=== PATIENT | male | born 1940 | race Caucasian/White ===

== ENCOUNTER 2016-10-05 12:24 | Day surgery (SDC) | payer MEDICARE ==
[2016-10-05] MEDS ORDERED: LACTATED RINGERS 1,000 ML IV ONE (12:46)
[2016-10-05] MEDS ORDERED: EPINEPHrine 1 MG/ML AMP IVP ONE (13:00)
[2016-10-05] MEDS ORDERED: PROPOFOL 200 MG/20 ML VIAL IVP ONE (13:00)
[2016-10-05] MEDS ORDERED: LIDOCAINE-MPF 2% 5 ML VIAL IM ONE (13:00)
[2016-10-05] MEDS ORDERED: MIDAZOLAM 2 MG/2 ML VIAL IVP ONE (13:00)
== END 2016-10-05 12:25 | disposition home or self-care (01) ==
PROC: 0DBH8ZX Excision of Cecum, Via Natural or Artificial Opening Endoscopic, Diagnostic (ICD-10-PCS; 2016-10-05)
PROC: 0DB38ZX Excision of Lower Esophagus, Via Natural or Artificial Opening Endoscopic, Diagnostic (ICD-10-PCS; principal; 2016-10-05 11:15)
PROC: 0DB68ZX Excision of Stomach, Via Natural or Artificial Opening Endoscopic, Diagnostic (ICD-10-PCS; 2016-10-05 11:15)
DX: Z12.11 Encounter for screening for malignant neoplasm of colon (principal); K22.70 Barrett's esophagus without dysplasia; D12.0 Benign neoplasm of cecum; K31.1 Adult hypertrophic pyloric stenosis; Q40.2 Other specified congenital malformations of stomach; K29.50 Unspecified chronic gastritis without bleeding; K62.89 Other specified diseases of anus and rectum; Q87.0 Congenital malformation syndromes predominantly affecting facial appearance; K44.9 Diaphragmatic hernia without obstruction or gangrene; K21.9 Gastro-esophageal reflux disease without esophagitis; Z86.010 Personal history of colon polyps; Z79.82 Long term (current) use of aspirin; J30.2 Other seasonal allergic rhinitis; E29.1 Testicular hypofunction; I25.2 Old myocardial infarction; I25.10 Atherosclerotic heart disease of native coronary artery without angina pectoris; E78.5 Hyperlipidemia, unspecified; M81.0 Age-related osteoporosis without current pathological fracture; Z82.49 Family history of ischemic heart disease and other diseases of the circulatory system; F17.210 Nicotine dependence, cigarettes, uncomplicated; K64.8 Other hemorrhoids; H54.8 Legal blindness, as defined in USA
CPT/HCPCS: 43239; 45380; 87081; J7120

== ENCOUNTER 2016-11-11 09:27 | Outpatient (CLI) | payer MEDICARE ==
[2016-11-11] MEDS ORDERED: BARIUM SULFATE 176 GM BOTTLE PO ONE (10:25)
[2016-11-11] MEDS ORDERED: BARIUM SULFATE 135 ML BOTTLE PO ONE (10:25)
== END 2016-11-11 09:28 | disposition home or self-care (01) ==
DX: K22.70 Barrett's esophagus without dysplasia (principal); K21.9 Gastro-esophageal reflux disease without esophagitis
CPT/HCPCS: 74246; A9270

== ENCOUNTER 2017-04-18 09:14 | Day surgery (SDC) | payer MEDICARE ==
[2017-04-18] MEDS ORDERED: LACTATED RINGERS 1,000 ML IV ONE ×2 (09:47→12:07)
[2017-04-18] MEDS ORDERED: PROPOFOL 200 MG/20 ML VIAL IVP ONE (12:00)
[2017-04-18] MEDS ORDERED: MIDAZOLAM 2 MG/2 ML VIAL IVP ONE (12:00)
[2017-04-18] MEDS ORDERED: LIDOCAINE-MPF 2% 5 ML VIAL IM ONE (12:00)
[2017-04-18 13:31] VITALS: BP 128/62
== END 2017-04-18 09:15 | disposition home or self-care (01) ==
LOC: SDS 09:14
PROVIDERS: ATTEND Surgery
PROC: 0DBH8ZX Excision of Cecum, Via Natural or Artificial Opening Endoscopic, Diagnostic (ICD-10-PCS; principal; 2017-04-18 10:30)
DX: D12.0 Benign neoplasm of cecum (principal); K57.30 Diverticulosis of large intestine without perforation or abscess without bleeding; K64.8 Other hemorrhoids; K21.9 Gastro-esophageal reflux disease without esophagitis; E78.5 Hyperlipidemia, unspecified; I25.10 Atherosclerotic heart disease of native coronary artery without angina pectoris; F17.210 Nicotine dependence, cigarettes, uncomplicated; K22.70 Barrett's esophagus without dysplasia; E03.9 Hypothyroidism, unspecified; Q87.0 Congenital malformation syndromes predominantly affecting facial appearance; Z79.82 Long term (current) use of aspirin
CPT/HCPCS: 45385; J7120; 88305

== ENCOUNTER 2017-09-01 11:28 | Outpatient (CLI) | payer MEDICARE | END 2017-09-01 11:29 | disposition home or self-care (01) | LOC: LAB.F 11:28 | PROVIDERS: ATTEND Physician Assistant Medical | DX: E29.1 Testicular hypofunction (principal) | CPT/HCPCS: 36415; 84403 ==

== ENCOUNTER 2017-09-12 12:58 | Outpatient (CLI) | payer MEDICARE | END 2017-09-12 12:59 | disposition home or self-care (01) | LOC: DI 12:58 | PROVIDERS: ATTEND Physician Assistant Medical | DX: R94.31 Abnormal electrocardiogram [ECG] [EKG] (principal); I25.10 Atherosclerotic heart disease of native coronary artery without angina pectoris | CPT/HCPCS: 93306 ==

== ENCOUNTER 2018-06-22 13:38 | Outpatient (CLI) | payer MEDICARE ==
[2018-06-22 17:36] LABS: EOSINOPHILS # (AUTO) 0.1 10^3/uL (0.0-0.7); EOSINOPHILS % (AUTO) 2.1 %; HGB - HEMOGLOBIN 14.6 g/dL (14.0-18.0); LYMPHOCYTES # (AUTO) 1.3 10^3/uL (1.5-3.5); LYMPHOCYTES % (AUTO) 26.7 %; MEAN CORPUSCULAR HEMOGLOBIN 33.4 pg (27.0-31.0); MEAN CORPUSCULAR HGB CONC 34.9 g/dL (32.0-36.0); MEAN CORPUSCULAR VOLUME 95.7 fL (80.0-94.0); MEAN PLATELET VOLUME 8.5 fL (7.4-11.4); MONOCYTES # (AUTO) 0.7 10^3/uL (0.0-1.0); MONOCYTES % (AUTO) 13.1 %; NEUTROPHILS # (AUTO) 2.8 10^3/uL (1.5-6.6); NEUTROPHILS % (AUTO) 57.1 %; PLT - PLATELET COUNT 153 10^3/uL (130-450); RED BLOOD COUNT 4.36 10^6/uL (4.70-6.10); RED CELL DISTRIBUTION WIDTH 13.2 % (12.0-15.0)
[2018-06-22 18:14] LABS: ALBUMIN 3.6 g/dL (3.2-5.5); ALBUMIN/GLOBULIN RATIO 1.3 (1.0-2.2); BILIRUBIN,TOTAL 0.5 mg/dL (0.2-1.0); CALCIUM 8.7 mg/dL (8.5-10.3); TOTAL PROTEIN 6.4 g/dL (6.7-8.2)
== END 2018-06-22 13:39 | disposition home or self-care (01) ==
LOC: LAB.F 13:38
PROVIDERS: ATTEND Physician Assistant Medical
DX: E03.9 Hypothyroidism, unspecified (principal); N18.9 Chronic kidney disease, unspecified
CPT/HCPCS: 36415; 80053; 84443; 85025

== ENCOUNTER 2018-11-10 22:43 | Outpatient (CLI) | payer MEDICARE | END 2018-11-10 22:44 | disposition critical access hospital (66) | LOC: EMS 22:43 | PROVIDERS: ATTEND Surgery | DX: M25.552 Pain in left hip (principal); S09.90XA Unspecified injury of head, initial encounter; W10.8XXA Fall (on) (from) other stairs and steps, initial encounter; Y92.001 Dining room of unspecified non-institutional (private) residence as the place of occurrence of the external cause | CPT/HCPCS: A0425; A0429 ==

== ENCOUNTER 2018-11-10 23:06 | Inpatient (IN) | payer MEDICARE ==
[2018-11-10 23:33] LABS: BILIRUBIN,URINE NEGATIVE (NEGATIVE); GLUCOSE, URINE (UA) NEGATIVE (NEGATIVE); KETONES,URINE (UA) NEGATIVE (NEGATIVE); LEUKOCYTE ESTERASE, URINE NEGATIVE (NEGATIVE); NITRITE,URINE NEGATIVE (NEGATIVE); OCCULT BLOOD,URINE NEGATIVE (NEGATIVE); PROTEIN,URINE NEGATIVE (NEGATIVE); UROBILINOGEN,URINE 0.2 (NORMAL) E.U./dL (NORMAL)
[2018-11-10 23:35] LABS: CLARITY,URINE CLEAR (CLEAR)
--- NOTE | 2018-11-11 00:01 | XRAY Report ---
Reason: GLF, shortening Procedure Date: 11/10/2018 Accession Number: [id number] / [id number] Procedure: XR - Hip w/Pelvis 2-3V LT CPT Code: FULL RESULT: EXAM: LEFT HIP RADIOGRAPHY EXAM DATE: 11/10/2018 11:49 PM. CLINICAL HISTORY: GLF, shortening. COMPARISON: None. TECHNIQUE: 2 views. FINDINGS: Bones: Mild sclerosis in the basicervical and intertrochanteric region of the left femur suspicious for an impacted fracture. Joints: Mild osteoarthritis of the hips. Soft Tissues: Soft tissue swelling. IMPRESSION: Sclerosis in the basicervical and intertrochanteric left femur, suspicious for an impacted fracture. Consider further evaluation with CT or MRI. RADIA
--- NOTE | 2018-11-11 00:27 | ED Physician Documentation ---
PD HPI LOWER EXT INJURY - Stated complaint Stated Complaint: GLF/HIP PX - Chief complaint Chief Complaint: Ext Problem - History obtained from History obtained from: Patient, Family, EMS - History of Present Illness PD HPI LOW EXT INJURY LOCATION: Left, Hip Type of injury: Fall Where injury occurred: Home Timing - onset: Enter time (21:00) Timing - details: Abrupt onset Improved by: Rest Worsened by: Moving Associated symptoms: No: Weakness, Numbness, Tingling, Swelling, Discolored Contributing factors: No: Anticoagulated Recently seen: Not recently seen Review of Systems Constitutional: reports: Reviewed and negative Eyes: reports: Reviewed and negative Ears: reports: Reviewed and negative Nose: reports: Reviewed and negative Throat: reports: Reviewed and negative Cardiac: reports: Reviewed and negative Respiratory: reports: Reviewed and negative GI: reports: Reviewed and negative : reports: Reviewed and negative Skin: reports: Reviewed and negative Musculoskeletal: reports: Joint pain, Pain with weight bearing Neurologic: reports: Reviewed and negative PD PAST MEDICAL HISTORY - Past Medical History Past Medical History: Yes Cardiovascular: High cholesterol, Coronary artery disease, [place], Arrhythmia Respiratory: None Endocrine/Autoimmune: None GI: GERD, Ulcers : None HEENT: Chronic vision loss, Chronic sinusitis, Chronic hearing loss Psych: Depression Musculoskeletal: Osteoporosis Derm: None - Past Surgical History Past Surgical History: Yes General: Gastric surgery, Colonoscopy Ortho: Other - Present Medications Home Medications: Ambulatory Orders Medication Instructions Recorded Confirmed Omeprazole [PriLOSEC] 20 mg PO QDAC 04/08/14 11/11/18 raNITIdine [Zantac] 150 mg PO BID 04/08/14 11/11/18 - Allergies Allergies/Adverse Reactions: Allergies Allergy/AdvReac Type Severity Reaction Status Date / Time No Known Drug Allergies Allergy Verified 10/05/16 12:30 - Social History Does the pt smoke?: Yes Smoking Status: Current every day smoker Does the pt drink ETOH?: No Does the pt have substance abuse?: No - Immunizations Immunizations are current?: Yes - POLST Patient has POLST: No PD ED PE NORMAL - Vitals Vital signs reviewed: Yes - General General: Alert and oriented X 3, No acute distress (NAD at rest but painful distress with movement involving left hip), Well developed/nourished - HEENT HEENT: Moist mucous membranes - Neck Neck: Supple, no meningeal sign, No bony TTP - Cardiac Cardiac: RRR, No murmur - Respiratory Respiratory: No respiratory distress, Clear bilaterally - Abdomen Abdomen: Soft, Non tender - Derm Derm: Normal color, Warm and dry - Extremities Extremities: No edema - Neuro Neuro: Alert and oriented X 3, No motor deficit, No sensory deficit PD ED PE EXPANDED - Extremities Extremities: Limited ROM, Left hip Results - Vitals Vitals: Vital Signs - 24 hr 11/11/18 01:27 Heart Rate 82 Respiratory 18 Rate Blood Pressure 130/101 H O2 Saturation 96 Oxygen O2 Source Room air - Labs Labs: Laboratory Tests 11/10/18 11/11/18 11/11/18 23:30 00:48 01:14 WBC 11.6 H RBC 4.42 L Hgb 14.8 Hct 42.8 MCV 96.8 H MCH 33.4 H MCHC 34.5 RDW 13.7 Plt Count 177 MPV 8.0 Neut # (Auto) 9.5 H Lymph # (Auto) 1.1 L [place] # (Auto) 0.9 Eos # (Auto) 0.1 Baso # (Auto) 0.0 Absolute Nucleated RBC 0.00 Nucleated RBC % 0.0 Sodium 134 L Potassium 3.8 Chloride 101 Carbon Dioxide 23 Anion Gap 10.0 BUN 18 Creatinine 1.0 Estimated GFR (MDRD) 72 L Glucose 106 H Calcium 8.6 Urine Color YELLOW Urine Clarity CLEAR Urine pH 7.0 Ur Specific [place] 1.020 Urine Protein NEGATIVE Urine Glucose (UA) NEGATIVE Urine Ketones NEGATIVE Urine Occult Blood NEGATIVE Urine Nitrite NEGATIVE Urine Bilirubin NEGATIVE Urine Urobilinogen 0.2 (NORMAL) Ur Leukocyte Esterase NEGATIVE Ur Microscopic Review NOT INDICATED Urine Culture Comments NOT INDICATED - Rads (name of study) left hip xrays Radiology: Prelim report reviewed, See rad report left hip CT Radiology: Prelim report reviewed, See rad report PD MEDICAL DECISION MAKING - ED course Complexity details: reviewed results, re-evaluated patient, considered differential, d/w patient, d/w family ED course: D/W Dr. Rojas, recommends admission to hospitalist service. D/W Dr. Salcedo, accepts admission to hospitalist service Departure - Departure Disposition: 66 [facility] DC/Xfer Clinical Impression: Hip fracture Qualifiers: Encounter type: initial encounter Fracture type: closed Laterality: left Qualified Code(s): S72.002A - Fracture of unspecified part of neck of left femur, initial encounter for closed fracture Condition: Good Discharge Date/Time: 11/11/18 04:05
[2018-11-11] MEDS ORDERED: MORPHINE 2 MG/ML CARPUJECT IVP STA ×3 (00:32→03:28)
[2018-11-11 00:55] LABS: BASOPHILS % (AUTO) 0.4 %; EOSINOPHILS # (AUTO) 0.1 10^3/uL (0.0-0.7); EOSINOPHILS % (AUTO) 0.6 %; HGB - HEMOGLOBIN 14.8 g/dL (14.0-18.0); LYMPHOCYTES # (AUTO) 1.1 10^3/uL (1.5-3.5); LYMPHOCYTES % (AUTO) 9.3 %; MEAN CORPUSCULAR HEMOGLOBIN 33.4 pg (27.0-31.0); MEAN CORPUSCULAR HGB CONC 34.5 g/dL (32.0-36.0); MEAN CORPUSCULAR VOLUME 96.8 fL (80.0-94.0); MONOCYTES # (AUTO) 0.9 10^3/uL (0.0-1.0); MONOCYTES % (AUTO) 7.8 %; NEUTROPHILS # (AUTO) 9.5 10^3/uL (1.5-6.6); NEUTROPHILS % (AUTO) 81.9 %; PLT - PLATELET COUNT 177 10^3/uL (130-450); RED BLOOD COUNT 4.42 10^6/uL (4.70-6.10); RED CELL DISTRIBUTION WIDTH 13.7 % (12.0-15.0); WHITE BLOOD COUNT 11.6 x10^3/uL (4.8-10.8)
--- NOTE | 2018-11-11 01:25 | CT Report ---
Reason: left hip pain Procedure Date: 11/11/2018 Accession Number: [id number] / [id number] Procedure: CT - Lower Extremity Left W/O CPT Code: FULL RESULT: EXAM: LEFT KNEE CT WITHOUT CONTRAST EXAM DATE: 11/11/2018 01:07 AM. CLINICAL HISTORY: Left hip pain. COMPARISON: HIP W/PELVIS 2-3V LT 11/10/2018 11:25 PM. TECHNIQUE: Thin-section axial images were acquired of the knee without contrast. Post-processing: Coronal and sagittal reformats. Other: None. In accordance with CT protocol optimization, one or more of the following dose reduction techniques were utilized for this exam: automated exposure control, adjustment of mA and/or KV based on patient size, or use of iterative reconstructive technique. FINDINGS: Bones: There is an intertrochanteric fracture with impaction of the fracture fragments and subtle fracture through the lateral base of the femoral neck. On the axial images there is angulation of the fracture fragments. Musculature: Normal. No fatty atrophy. Other: No Bakers cyst. No soft tissue swelling. IMPRESSION: 1. Intertrochanteric impaction fracture of the left hip. RADIA
[2018-11-11 01:31] LABS: CALCIUM 8.6 mg/dL (8.5-10.3)
[2018-11-11] MEDS ORDERED: SODIUM CHLORIDE 0.9% 1,000 ML IV STA (02:16)
[2018-11-11] MEDS ORDERED: PANTOPRAZOLE 40 MG VIAL IVP STA (02:18)
[2018-11-11] MEDS ORDERED: SODIUM CHLORIDE FLUSH 0.9% 10 ML SYRINGE IVP PRN ×2 (03:29→12:31)
[2018-11-11] MEDS ORDERED: ACETAMINOPHEN 325 MG TABLET PO PRN (03:29)
[2018-11-11] MEDS ORDERED: SODIUM CHLORIDE 0.9% 1,000 ML IV SCH (04:00)
--- NOTE | 2018-11-11 04:04 | XRAY Report ---
Reason: pre-op eval Procedure Date: 11/11/2018 Accession Number: [id number] / [id number] Procedure: XR - Chest 1 View X-Ray CPT Code: 51226 FULL RESULT: EXAM: CHEST RADIOGRAPHY EXAM DATE: 11/11/2018 03:39 AM. CLINICAL HISTORY: Pre-op eval. COMPARISON: 02/28/2009 1:25 PM. TECHNIQUE: 1 view. FINDINGS: Lungs/Pleura: No focal opacities evident. No pleural effusion. No pneumothorax. Mediastinum: Within exam limitations, the cardiomediastinal contour is normal. Other: None. IMPRESSION: No evidence of acute cardiopulmonary disease. RADIA
--- NOTE | 2018-11-11 04:10 | HISTORY & PHYSICAL EXAMINATION ---
Chief Complaint - Chief Complaint Chief Complaint: left hip pain History of Present Illness - Admitted From Admitted From:: [facility] ED - History Obtained From Records Reviewed: yes History obtained from: patient - History of Present Illness HPI Comment/Other: Patient is a 78 y/o male who presented to the ED after a mechanical fall. He was distracted while taking a step and tripped/ slipped. He bumped his head against the wall. He did not experience any dizziness, vision change or black out. He was unable to bear weight on the left side when he attempted to stand. He denies chest pain GARRETT, abd pain, nausea, vomiting, fever or chills. He had an xray of the hip and a CT of the hip which confirmed the fracture. 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 He uses a white cane to walk when he is out of the house. He is being admitted for further management. History - Past Medical History Cardiovascular: reports: High cholesterol, Coronary artery disease, [place], Arrhythmia Respiratory: reports: None Endocrine/Autoimmune: reports: None GI: reports: GERD, Ulcers : reports: None HEENT: reports: Chronic vision loss, Chronic sinusitis, Chronic hearing loss Psych: reports: Depression Musculoskeletal: reports: Osteoporosis Derm: reports: None MRSA Hx?: No Other Past Medical History: Apert Syndrome. throat Ca, in remission. ?'heart stopped' during gastric surgery - Past Surgical History General: reports: Gastric surgery, Colonoscopy Ortho: reports: Other - Family & Social History Family History: Mother: CAD, Father: CAD Living arrangement: At home Living Situation: With family - Substance History Use: Uses substance without health or social issues: Tobacco Tobacco Details: Cigarettes - POLST Patient has POLST: Yes POLST Status: Full Code Meds/Allgy - Home Medications Home Medications: Ambulatory Orders Medication Instructions Recorded Confirmed Omeprazole [PriLOSEC] 20 mg PO DAILY 04/08/14 04/18/17 Testosterone [Testopel] 74 mg IN UD 04/08/14 04/18/17 raNITIdine [Zantac] 150 mg PO DAILY 04/08/14 04/18/17 Calcium Carbonate [Tums] 1 tab PO DAILY 10/05/16 04/18/17 Ibuprofen [Advil] 200 mg PO Q6HR PRN 10/05/16 04/18/17 - Allergies Allergies/Adverse Reactions: Allergies Allergy/AdvReac Type Severity Reaction Status Date / Time No Known Drug Allergies Allergy Verified 10/05/16 12:30 Review of Systems - Constitutional Constitutional: denies: Fatigue, Fever, Chills, Weakness, Poor appetite - Eyes Eyes: denies: Pain, Irritation, Blurred vision, Vision loss, Dipolpia - Ears, Nose & Throat Ears, Nose & Throat: denies: Vertigo, Nasal pain, Sore throat - Cardiovascular Cariovascular: denies: Irregular heart rate, Palpitations, Chest pain, Edema, Lightheadedness, Syncope, Exertional dyspnea, Decr. exercise tolerance, Orthopnea - Respiratory Respiratory: denies: Cough, Sputum production, Wheezing, Hemoptysis, Orthopnea, SOB at rest, SOB with exertion - Gastrointestinal Gastrointestinal: denies: Abdominal pain, Abdominal distention, Constipation, Change in bowel habits, Rectal bleeding, Black stools, Nausea, Vomiting - Genitourinary Genitourinary: denies: Dysuria, Frequency, Urgency, Hematuria - Musculoskeletal Musculoskeletal: denies: Back pain, Muscle aches, Stiffness, Gout, Joint pain - Integumentary Integumentary: denies: Rash, Pruritis, Lesions, Dryness - Neurological Neurological: denies: General weakness, Focal weakness, Headache, Dizziness - Psychiatric Psychiatric: denies: Depression, Anxiety, Hallucinations - Endocrine Endocrine: denies: Polyuria, Polydypsia, Polyphagia, Intolerance to cold - Hematologic/Lymphatic Hematologic/Lymphatic: denies: Anemia, Bruising, Petechiae, Blood clots Prior Level of Functionality: Patient lives with his daughter. He is legally blind and uses a white cane to get around outside of the house. He can see shapes and shadows but cannot make out any further details He is able to fix a meal e.g sandwich for himself. He is hard of hearing Exam - Vital Signs Reviewed Vital Signs: Yes Vital Signs: Vital Signs x48h Temp Pulse Resp BP Pulse Ox 11/11/18 03:52 91 18 114/81 H 95 11/11/18 01:27 82 18 130/101 H 96 11/10/18 23:16 35.8 C L 82 18 158/95 H 97 11/10/18 23:13 35.8 C L 82 18 158/95 H 97 - Physical Exam General Appearance: positive: No acute distress, Alert, Moderate distress. negative: Lethargic Eyes Bilateral: positive: Normal inspection, PERRL ENT: positive: ENT inspection nml Neck: positive: No JVD, Trachea midline Respiratory: positive: Chest non-tender, No respiratory distress, Breath sounds nml. negative: Wheezes, Rales, Rhonchi Cardiovascular: positive: Regular rate & rhythm, No murmur Abdomen: positive: Non-tender, No organomegaly, Nml bowel sounds, No distention Back: positive: Nml inspection Extremities: positive: No pedal edema, Other (left hip pain) Neurologic/Psychiatric: positive: Oriented x3 Conclusion/Plan - Problem List (1) Closed intertrochanteric fracture of left femur Conclusion/Plan: Pt NPO. IV hydration Pain management with tylenol Dr Rojas (orthopedic) was contacted by the ED and plans to see the patient to day. 12 lead EKG and CXR pending According to the revised cardiac risk index, the patient has no risk factors. Which put his risk of a cardiac event during this noncardiac surgery at 0.5% However, in light of a previous cardiac event during a gastric surgery ("heart stopped") I will recommend further evaluation with a 2D echocardiogram Qualifiers: Encounter type: initial encounter (2) Osteoporosis Conclusion/Plan: On calcium supplement (3) Hypogonadism Conclusion/Plan: Patient uses testosterone cream (4) GERD (gastroesophageal reflux disease) Conclusion/Plan: Protonix ordered (5) Apert syndrome Conclusion/Plan: Chronic. Congenital (6) Tobacco abuse Conclusion/Plan: Nicotine patch - Lab Results Fish Bones: 11/11/18 00:48 11/11/18 01:14 Core Measures - DVT/VTE - Prophylaxis VTE/DVT Device ordered at admit?: Yes VTE/DVT Prophylaxis med ordered at admit?: No Not Ordered - Medical Reason: Contraindicated (surgery)
[2018-11-11] MEDS ORDERED: NICOTINE 14 MG PATCH TOP STA (05:16)
[2018-11-11] MEDS ORDERED: MORPHINE 2 MG/ML CARPUJECT IVP PRN (08:17)
--- NOTE | 2018-11-11 08:48 | PROVIDER PROGRESS NOTE ---
Assessment/Plan - Problem List (1) Closed intertrochanteric fracture of left femur Qualifiers: Encounter type: initial encounter Fracture alignment: displaced Qualified Code(s): S72.142A - Displaced intertrochanteric fracture of left femur, initial encounter for closed fracture Assessment/Plan: Pt requiring orthopedic surgery today. Post-op pain control, DVT prophylaxis and then Physical Therapy to start tomorrow. (2) Apert syndrome Assessment/Plan: Dysmorphic facies noted. Patient is also legally blind, but sees shapes. (3) Abnormal EKG Assessment/Plan: The record states he has a Hx of prior OH. 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 A bedside, pre-op Echo was done and shows a preserved LVEF. There are no recent SOB or chest pain complaints. His kashif-operative risk is 1, therefore risk rate for a major cardiac event, using the Revised Cardiac Risk Index, is 1-1.3% He is optimized from a cardiac standpoint for the OR today, and I communicated this to Dr Rojas, the Orthopedist. - Current Meds Current Meds: Current Medications Generic Name Dose Route Start Last Admin Trade Name Freq PRN Reason Stop Dose Admin Sodium Chloride 1,000 mls @ 100 mls/hr 11/11/18 04:00 11/11/18 04:22 Normal Saline 0.9% IV 100 mls/hr .Q10H JOSE MANUEL Administration - Lab Result Fish Bone Diagrams: 11/11/18 00:48 11/11/18 01:14 - EKG Results EKG Interpreted Independently: Yes EKG Comparison: No prior EKG EKG Findings: NSR, low voltage EKG, deep inferior QS waves, poor R ave progression. - Additional Planning My Orders: My Active Orders 11/11/18 08:17 Morphine Inj (Carpuject) [Morphine (Carpuject)] 2.5 mg IVP Q4H PRN Subjective - Subjective Patient Reports: Feeling Better, Resting Comfortably Nursing Reports: Other (Some pain at hhip.) Objective Vital Signs: Vital Signs - 24 hr 11/10/18 11/10/18 11/11/18 23:13 23:16 01:27 Temperature 35.8 C L 35.8 C L Heart Rate 82 82 82 Heart Rate [ Brachial] Respiratory 18 18 18 Rate Blood Pressure 158/95 H 158/95 H 130/101 H Blood Pressure [Right Brachial artery] O2 Saturation 97 97 96 11/11/18 11/11/18 11/11/18 03:52 04:23 08:00 Temperature 36.4 C L 36.7 C Heart Rate 91 Heart Rate [ 87 80 Brachial] Respiratory 18 17 18 Rate Blood Pressure 114/81 H Blood Pressure 116/79 127/66 [Right Brachial artery] O2 Saturation 95 94 96 Oxygen O2 Source Room air I&O (Last 24 Hrs): Intake and Output Totals x24h 11/09/18 11/10/18 11/11/18 23:59 23:59 23:59 Output Total 450 Balance -450 General: Alert HEENT: Other (Dysmorphic head and face) Neck: Supple Neuro: Other (Legally blind) Cardiovascular: Regular rate, No murmurs Respiratory: No respiratory distress Abdomen: Soft Extremities: No edema - Results Results: Laboratory Results WBC 11.6 x10^3/uL (4.8-10.8) H 11/11/18 00:48 RBC 4.42 10^6/uL (4.70-6.10) L 11/11/18 00:48 Hgb 14.8 g/dL (14.0-18.0) 11/11/18 00:48 Hct 42.8 % (42.0-52.0) 11/11/18 00:48 MCV 96.8 fL (80.0-94.0) H 11/11/18 00:48 MCH 33.4 pg (27.0-31.0) H 11/11/18 00:48 MCHC 34.5 g/dL (32.0-36.0) 11/11/18 00:48 RDW 13.7 % (12.0-15.0) 11/11/18 00:48 Plt Count 177 10^3/uL (130-450) 11/11/18 00:48 MPV 8.0 fL (7.4-11.4) 11/11/18 00:48 Neut # (Auto) 9.5 10^3/uL (1.5-6.6) H 11/11/18 00:48 Lymph # (Auto) 1.1 10^3/uL (1.5-3.5) L 11/11/18 00:48 [place] # (Auto) 0.9 10^3/uL (0.0-1.0) 11/11/18 00:48 Eos # (Auto) 0.1 10^3/uL (0.0-0.7) 11/11/18 00:48 Baso # (Auto) 0.0 10^3/uL (0.0-0.1) 11/11/18 00:48 Absolute Nucleated RBC 0.00 x10^3/uL 11/11/18 00:48 Nucleated RBC % 0.0 /100WBC 11/11/18 00:48 Sodium 134 mmol/L (135-145) L 11/11/18 01:14 Potassium 3.8 mmol/L (3.5-5.0) 11/11/18 01:14 Chloride 101 mmol/L (101-111) 11/11/18 01:14 Carbon Dioxide 23 mmol/L (21-32) 11/11/18 01:14 Anion Gap 10.0 (6-13) 11/11/18 01:14 BUN 18 mg/dL (6-20) 11/11/18 01:14 Creatinine 1.0 mg/dL (0.6-1.2) 11/11/18 01:14 Estimated GFR (MDRD) 72 (>89) L 11/11/18 01:14 Glucose 106 mg/dL (70-100) H 11/11/18 01:14 Calcium 8.6 mg/dL (8.5-10.3) 11/11/18 01:14 Urine Color YELLOW 11/10/18 23:30 Urine Clarity CLEAR (CLEAR) 11/10/18 23:30 Urine pH 7.0 PH (5.0-7.5) 11/10/18 23:30 Ur Specific [place] 1.020 (1.002-1.030) 11/10/18 23:30 Urine Protein NEGATIVE mg/dL (NEGATIVE) 11/10/18 23:30 Urine Glucose (UA) NEGATIVE mg/dL (NEGATIVE) 11/10/18 23:30 Urine Ketones NEGATIVE mg/dL (NEGATIVE) 11/10/18 23:30 Urine Occult Blood NEGATIVE (NEGATIVE) 11/10/18 23:30 Urine Nitrite NEGATIVE (NEGATIVE) 11/10/18 23:30 Urine Bilirubin NEGATIVE (NEGATIVE) 11/10/18 23:30 Urine Urobilinogen 0.2 (NORMAL) E.U./dL (NORMAL) 11/10/18 23:30 Ur Leukocyte Esterase NEGATIVE (NEGATIVE) 11/10/18 23:30 Ur Microscopic Review NOT INDICATED 11/10/18 23:30 Urine Culture Comments NOT INDICATED 11/10/18 23:30 - Procedures Procedures: Procedures ESOPHAGOGASTRODUODENOSCOPY [EGD] W/CLOSED BIOPSY (04/08/14) EXCISION OF CECUM, ENDO, DIAGN (04/18/17) EXCISION OF LOWER ESOPHAGUS, ENDO, DIAGN (10/05/16) EXCISION OF STOMACH, ENDO, DIAGN (10/05/16)
[2018-11-11] MEDS: SODIUM CHLORIDE FLUSH 0.9% 10 ML SYRINGE IVP SCH ×4 (08:52→20:38)
[2018-11-11] MEDS: PANTOPRAZOLE 40 MG VIAL IVP SCH (08:52)
[2018-11-11] MEDS: POLYETHYLENE GLYCOL 3350 17 GM PACKET PO SCH (08:53)
--- NOTE | 2018-11-11 09:22 | PROVIDER PROGRESS NOTE ---
Subjective - Prog Note Date Prog Note Date: 11/11/18 Prog Note Time: 09:20 - Subjective Pt reports feeling: No change (Patient TOM leal GLF at home last PM, landing onto his left side. Noted immediate hip pain. Unable to stand or weight bear on left. No prior hip fracture) Objective - Vital Signs/Intake & Output Vital Signs: Vital Signs x48h Temp Pulse Pulse Resp BP BP Pulse Ox 11/11/18 08:00 36.7 C 80 18 127/66 96 11/11/18 04:23 36.4 C L 87 17 116/79 94 11/11/18 03:52 91 18 114/81 H 95 11/11/18 01:27 82 18 130/101 H 96 Intake & Output: Intake & Output 11/08/18 11/09/18 11/10/18 11/11/18 23:59 23:59 23:59 23:59 Output Total 450 Balance -450 - Lab Results Fish Bones: 11/11/18 00:48 11/11/18 01:14 Other Labs: Lab Results x24hrs 11/11/18 11/11/18 11/10/18 Range/Units 01:14 00:48 23:30 WBC 11.6 H (4.8-10.8) x10^3/uL RBC 4.42 L (4.70-6.10) 10^6/uL Hgb 14.8 (14.0-18.0) g/dL Hct 42.8 (42.0-52.0) % MCV 96.8 H (80.0-94.0) fL MCH 33.4 H (27.0-31.0) pg MCHC 34.5 (32.0-36.0) g/dL RDW 13.7 (12.0-15.0) % Plt Count 177 (130-450) 10^3/uL MPV 8.0 (7.4-11.4) fL Neut # (Auto) 9.5 H (1.5-6.6) 10^3/uL Lymph # (Auto) 1.1 L (1.5-3.5) 10^3/uL [place] # (Auto) 0.9 (0.0-1.0) 10^3/uL Eos # (Auto) 0.1 (0.0-0.7) 10^3/uL Baso # (Auto) 0.0 (0.0-0.1) 10^3/uL Absolute Nucleated RBC 0.00 x10^3/uL Nucleated RBC % 0.0 /100WBC Sodium 134 L (135-145) mmol/L Potassium 3.8 (3.5-5.0) mmol/L Chloride 101 (101-111) mmol/L Carbon Dioxide 23 (21-32) mmol/L Anion Gap 10.0 (6-13) BUN 18 (6-20) mg/dL Creatinine 1.0 (0.6-1.2) mg/dL Estimated GFR (MDRD) 72 L (>89) Glucose 106 H (70-100) mg/dL Calcium 8.6 (8.5-10.3) mg/dL Urine Color YELLOW Urine Clarity CLEAR (CLEAR) Urine pH 7.0 (5.0-7.5) PH Ur Specific [place] 1.020 (1.002-1.030) Urine Protein NEGATIVE (NEGATIVE) mg/dL Urine Glucose (UA) NEGATIVE (NEGATIVE) mg/dL Urine Ketones NEGATIVE (NEGATIVE) mg/dL Urine Occult Blood NEGATIVE (NEGATIVE) Urine Nitrite NEGATIVE (NEGATIVE) Urine Bilirubin NEGATIVE (NEGATIVE) Urine Urobilinogen 0.2 (NORMAL) (NORMAL) E.U./dL Ur Leukocyte Esterase NEGATIVE (NEGATIVE) Ur Microscopic Review NOT INDICATED Urine Culture Comments NOT INDICATED - Diagnostic Imaging Diagnostic Imaging Comments: XR and CT scan show an impacted IT/basilar neck hip fracture - Other Results/Comments Other Results/Comments: Exam: Left hip: 1+ tender laterally. Painful hip motion. Moves toes well. Sensation intact. Good cap filling Assessment/Plan - Problem List (1) Closed intertrochanteric fracture of left femur Impression: Clolosed, impacted fracture PLAN: To OR today for short interTan nailing of fracture. Options given and possible complications explained, including anesthesia risk, infection, ma lunion, nonunion, DVT, etc. Questions answered. Leg marked. Consent signed. Qualifiers: Encounter type: initial encounter Fracture alignment: displaced Qualified Code(s): S72.142A - Displaced intertrochanteric fracture of left femur, initial encounter for closed fracture
[2018-11-11] MEDS ORDERED: ceFAZolin 2 GM/50 ML 2 GM/50 ML BAG IV SCH (09:30)
--- NOTE | 2018-11-11 09:46 | ANESTHESIA ---
Pre-Anesthesia VS, & Labs - Diagnosis left hip fracture - Procedure nailing of left hip fracture Vital Signs: Temp Pulse Resp BP Pulse Ox 36.7 C 80 18 127/66 96 11/11/18 08:00 11/11/18 08:00 11/11/18 08:00 11/11/18 08:00 11/11/18 08:00 Height 5 ft 4 in Weight (kg) 55.5 kg Body Mass Index 20.9 - NPO >8 hours - Lab Results Current Lab Results: Laboratory Tests 11/11/18 01:14: Sodium 134 L, Potassium 3.8, Chloride 101, Carbon Dioxide 23, Anion Gap 10.0, BUN 18, Creatinine 1.0, Estimated GFR (MDRD) 72 L, Glucose 106 H , Calcium 8.6 11/11/18 00:48: WBC 11.6 H, RBC 4.42 L, Hgb 14.8, Hct 42.8, MCV 96.8 H, MCH 33.4 H, MCHC 34.5, RDW 13.7, Plt Count 177, MPV 8.0, Neut # (Auto) 9.5 H, Lymph # (Auto) 1.1 L, [place] # (Auto) 0.9, Eos # (Auto) 0.1, Baso # (Auto) 0.0, Absolute Nucleated RBC 0.00, Nucleated RBC % 0.0 Lab results reviewed: Yes Fish Bones: 11/11/18 00:48 11/11/18 01:14 Home Medications and Allergies Active Medications Acetaminophen (Tylenol) 650 mg PO Q4HR PRN PRN Reason: Pain 1 to 4 Sodium Chloride (Normal Saline 0.9%) 1,000 mls @ 100 mls/hr IV .Q10H JOSE MANUEL Last Admin: 11/11/18 04:22 Dose: 100 mls/hr Cefazolin Sodium/Dextrose (Ancef 2 Gm/50 Ml) 2 gm in 50 mls @ 100 mls/hr IV ONCE JOSE MANUEL Stop: 11/11/18 12:00 Morphine Sulfate (Morphine (Carpuject)) 2.5 mg IVP Q4H PRN PRN Reason: SEVERE PAIN Last Admin: 11/11/18 08:52 Dose: 2.5 mg Pantoprazole Sodium (Protonix) 40 mg IVP DAILY JOSE MANUEL Last Admin: 11/11/18 08:52 Dose: 40 mg Polyethylene Glycol (Miralax) 17 gm PO DAILY [facility] Last Admin: 11/11/18 08:53 Dose: Not Given Sodium Chloride (Normal Saline Flush 0.9%) 10 ml IVP PRN PRN PRN Reason: NEEDED PER PROVIDER ORDERS Sodium Chloride (Normal Saline Flush 0.9%) 10 ml IVP 0100,0900,1700 [facility] Last Admin: 11/11/18 08:52 Dose: 10 ml Omeprazole [PriLOSEC] 20 mg PO QDAC 04/08/14 raNITIdine [Zantac] 150 mg PO BID 04/08/14 Allergies/Adverse Reactions: Allergies Allergy/AdvReac Type Severity Reaction Status Date / Time No Known Drug Allergies Allergy Verified 10/05/16 12:30 Anes History & Medical History - Anesthetic History Anesthesia Complications: reports: Other-see comment (aspiration) Family history of Anesthesia Complications: Denies Family history of Malignant Hyperthermia: Denies - Medical History Cardiovascular: reports: High cholesterol, Coronary artery disease, [place], Arrhythmia Pulmonary: reports: None Gastrointestinal: reports: GERD, Ulcers Urinary: reports: None Musculoskeletal: reports: Osteoporosis Endocrine/Autoimmune: reports: None Skin: reports: None Smoking Status: Current every day smoker Other Past Medical History: Apert Syndrome. throat Ca, in remission. ?'heart stopped' during gastric surgery - Surgical History General: Gastric surgery, Colonoscopy Orthopedic: Other Exam General: Alert, Oriented x3 Dental: Dentures full Upper, Dentures full Lower Mouth Openin Fingerbreadth Neck Mobility: Normal Mallampati classification: II Thyromental Distance: greater than 6 cm Respiratory: Lungs clear Cardiovascular: Regular rate Plan Anesthesia Type: General Consent for Procedure(s) Verified and Reviewed: Yes Code Status: Attempt Resuscitation ASA classification: 3-Severe systemic disease Is this case an emergency?: Yes
[2018-11-11] MEDS ORDERED: BUPIVACAINE 0.25%-EPI 1:200000 PF 30 ML VIAL ONE (10:04)
--- NOTE | 2018-11-11 10:50 | CONSULTATION NOTE ---
DATE OF SERVICE: 11/11/2018 Physician: Maykel Rojas MD ORTHOPEDIC CONSULTATION NOTE REFERRING PHYSICIAN: Dr. Lam Mcpherson of the Emergency Room Department. CHIEF COMPLAINT: "My left hip hurts." HISTORY OF PRESENT ILLNESS: Mr. Dillon Shields is a 78-year-old male who fell at home las t evening when he had a missed step, stepping from his dining room to his living room. There is norm ally a step here and he just misjudged the step. The patient has poor sight and wears hearing aids. During his fall, he landed on his left side. He noted hip pain. He was unable to stand or weight b ear after the fall. He was taken by ambulance to the Emergency Room here at [facility] where x-rays showed an impacted intertrochanteric/basilar neck hip fracture on the left side. The p atient denied any distal weakness and numbness of the left lower extremity. No other injuries noted. PHYSICAL EXAMINATION: Left hip - has some lateral tenderness on palpation. Some mild pain with rang e of motion to the hip. The patient moves his toes satisfactorily. Sensation appeared to be intact and symmetrical. Good capillary filling noted. RADIOLOGY REPORT: Review of x-rays and CT scan of the left hip showed an impacted mildly comminuted intertrochanteric/basilar neck fracture of his left hip. ASSESSMENT: Closed mildly displaced and angulated left intertrochanteric/basilar neck hip fracture. PLAN: The patient was admitted to the medical service for preoperative evaluation. When cleared, we will plan on proceeding with surgical fixation of this fracture. This will likely be done Tuesday morning. I have discussed the options with the patient and he wishes to proceed with surgery. Possi ble complications were discussed including anesthesia risks, malunion, nonunion, infection, blood los s, nerve damage, deep venous thromboses, etc. The patient's questions were answered as well. Again, he wishes to proceed with surgery as planned later today. The leg was marked. Consent signed. TD: 11/11/2018 09:34
[2018-11-11] MEDS ORDERED: BUPIVACAINE 0.25% PF 30 ML VIAL SUBQ ONE ×2 (11:59)
[2018-11-11] MEDS ORDERED: LACTATED RINGERS 1,000 ML IV ONE (12:00)
[2018-11-11] MEDS ORDERED: ePHEDrine 50 MG/ML VIAL IVP ONE (12:28)
[2018-11-11] MEDS ORDERED: PROPOFOL 200 MG/20 ML VIAL IVP ONE (12:28)
[2018-11-11] MEDS ORDERED: LIDOCAINE-MPF 2% 5 ML VIAL IM ONE (12:28)
[2018-11-11] MEDS ORDERED: fentaNYL 100 MCG/2 ML VIAL IVP ONE (12:28)
[2018-11-11] MEDS ORDERED: ceFAZolin 2 GM/50 ML 2 GM/50 ML BAG IV ONE (12:28)
[2018-11-11] MEDS ORDERED: ROCURONIUM 50 MG/5 ML VIAL IVP ONE (12:28)
[2018-11-11] MEDS ORDERED: DOCUSATE SODIUM 100 MG CAPSULE PO PRN (12:31)
[2018-11-11] MEDS ORDERED: ACETAMINOPHEN 1,000 MG/100 ML 100 ML IV PRN (12:31)
[2018-11-11] MEDS ORDERED: ONDANSETRON 4 MG/2 ML VIAL IVP PRN (12:31)
[2018-11-11] MEDS ORDERED: PROCHLORPERAZINE 10 MG/2 ML VIAL IVP PRN (12:31)
--- NOTE | 2018-11-11 12:38 | OPERATIVE REPORT ---
Operative Report - General Admit Date: 11/11/18 Procedure Date: 11/11/18 Planned Procedure: Short interTan nailing of left hip fracture Pre-Op Diagnosis: Impacted left IT hip fracture Procedure Performed: Closed reduction and short interTan Nailing of left hip fracture Post Op Diagnosis: Same - Procedure Note Primary Surgeon: Maximus Rojas Anesthesia Provider: Janes Whitehead Anesthesia Technique: General ET tube IV Fluids (mL): 900 Estimated Blood Loss (mL): 100 Complications: None
--- NOTE | 2018-11-11 13:14 | XRAY Report ---
Reason: LEFT HIP PINNING Procedure Date: 11/11/2018 Accession Number: [id number] / [id number] Procedure: XR - Hip w/Pelvis 1V LT CPT Code: FULL RESULT: Fluoroscopic guidance for ORIF 11/11/2018 COMPARISON: Left hip 11/10/2018 Indication ORIF TECHNIQUE: Total fluoroscopic views 4 Total fluoroscopy time 29 seconds FINDINGS IMPRESSION: Intraprocedural views demonstrate left femur ORIF.
[2018-11-11] MEDS: SODIUM CHLORIDE 0.9% 1,000 ML IV SCH (14:13)
[2018-11-11] MEDS: MORPHINE 2 MG/ML CARPUJECT IVP PRN ×2 (14:15→20:38)
--- NOTE | 2018-11-11 14:19 | OPERATIVE REPORT ---
DATE OF SERVICE: 11/11/2018 Physician: Maykel Rjoas MD PREOPERATIVE DIAGNOSIS: Closed displaced, impacted left intertrochanteric/basilar neck hip fracture. POSTOPERATIVE DIAGNOSIS: Closed displaced impacted left intertrochanteric/basilar neck hip fracture. PROCEDURE PERFORMED: Closed reduction and short Intertan nailing of left hip fracture. SURGEON: Maykel Rojas MD ANESTHESIA: General. DESCRIPTION OF PROCEDURE: The patient was taken to the operating room on the morning of 11/11/2018, where he was placed under a general anesthetic without any problems. He was then positioned onto the fracture table supine. His un-fractured right leg was then flexed and widely abducted and held in a well-leg zurita. The left fractured lower extremity was then placed into axial traction with the le g internally rotated at approximately 45 degrees. Fluoroscopic views were then obtained of the hip s howing a good reduction in both AP and lateral projection with good visualization of the bone in both projections. We then prepped and draped the lateral aspect of the hip for our procedure. Making an oblique skin incision just proximal to the tip of the greater trochanter, the skin and fasc ia janna was incised. With blunt dissection, we were then able to palpate the tip of the greater troc hanter. This is where we placed the tip of the threaded guidewire from our set. With power we advan kaycee this pin from the tip of the greater trochanter into the proximal femur down to the level of the lesser trochanter. Fluoroscopic views in AP and lateral projection, showed satisfactory placement an d depth of our guidepin in both projections. We then proceeded to ream the proximal femur using the cannulated 16-mm channel reamer, using our inserted guidepin. We advanced this to the level of the lesser trochanter as well. We then removed the reamer and the guidepin. We then followed this up wi th a 10 mm x 18 cm x 125 degree angle short Intertan nail inserted with the insertion apparatus. The nail was advanced until the oblique proximal channel and our nail was in line with the axis of the f emoral neck. Satisfied with this, we then made a small incision in the proximal lateral thigh and ad vanced the oval drill sleeve through this incision up against the proximal lateral femoral cortex. W april inserted the drill sleeve into this guide and then advanced a threaded-tip guidewire with power thr ough the lateral femoral cortex, through the femoral neck and into the femoral head within a few mill imeters of the subchondral bone. Fluoroscopic views, AP and lateral projection, showed a good positi on of our guidepin in proper depths in both AP and lateral projections. Direct measuring device was used and we determined the 90 mm subtrochanteric 11 mm diameter hip lag screw be utilized. Removing our drill guide, we then proceeded to ream the proximal femur using the cannulated reamer. The reame r was then removed and we then advanced the selected subtrochanteric hip screw up through the prepare d proximal femoral reamed channel. This was advanced until the tip of the lag screw was within a few millimeters of the subchondral bone in both AP and lateral projections. Satisfied with our hardware position, we then removed our screw insertion device. We then locked the proximal screw of the nail using the hinged screwdriver. Once this was tight in, we then backed it off by 90 degrees. We then directed our attention to putting in the distal locking screw. Making a small skin incision made at the tip of the inserted nail, we inserted the concentric gold and silver sleeve drill sleeves into t he static hole in the distal end of our insertion apparatus advancing it through a small incision estrella n to the lateral cortex. Our 4 mm drill was then inserted through our concentric drill sleeves and w e drilled both the lateral and medial femoral cortex. Fluoroscopic views showed that we had just pen etrated the medial femoral cortex. Measurements off our drill indicated we used a 32.5 mm length, 5 mm distal locking screw. We removed our drill and the central silver sleeve. We then proceeded to i nsert the selected distal locking screw through the gold drill sleeve. Fluoroscopic views at the end of the insertion showed bicortical contact for our distal locking screw, and the screws in the dista l hole of our nail. Permanent x-rays were then obtained in both AP and lateral projection from the d istal tip of the nail and the hip area showing satisfactory placement of hardware and good reduction of our fracture. Insertion apparatus was then removed with a ball-tip screwdriver. We irrigated the wounds out thoroughly with saline. We then closed the wound in layers using several interrupted sim ple stitches of 0 Vicryl to approximate the fascia janna layer, followed by buried simple stitches of 2-0 Vicryl to approximate the subcutaneous tissues in the proximal two wounds. We then applied skin aiyana to approximate the skin wound. A total of 25 mL of 0.25% Marcaine with epinephrine was used to provide incisional anesthesia. We then dressed the wounds with Xeroform gauze, 4 x 4's, and Tegad erm. The patient was then transferred off of this fracture table and taken to the recovery room in h is bed in satisfactory condition. ESTIMATED BLOOD LOSS: 100 mL REPLACEMENT: 900 mL crystalloid. INTRAOPERATIVE COMPLICATIONS: None. PLAN: The patient will be ambulating, weightbearing as tolerated on the extremity with a walker, beg inning with therapy on postop day #1. TD: 11/11/2018 13:02
[2018-11-11] MEDS: ceFAZolin 2 GM/50 ML 2 GM/50 ML BAG IV SCH (19:50)
[2018-11-11] MEDS ORDERED: CALCIUM CARBONATE CHEW 500 MG TABLET PO PRN (21:23)
[2018-11-12] MEDS: MORPHINE 2 MG/ML CARPUJECT IVP PRN ×2 (00:32→08:48)
[2018-11-12] MEDS: SODIUM CHLORIDE FLUSH 0.9% 10 ML SYRINGE IVP SCH ×5 (00:33→17:21)
[2018-11-12] MEDS: SODIUM CHLORIDE 0.9% 1,000 ML IV SCH (03:14)
[2018-11-12] MEDS: ceFAZolin 2 GM/50 ML 2 GM/50 ML BAG IV SCH (03:14)
[2018-11-12] MEDS: HYDROcod/ACETAM 5/325 MG TABLET PO PRN ×3 (03:29→20:13)
[2018-11-12] MEDS: PANTOPRAZOLE 40 MG VIAL IVP SCH (08:48)
[2018-11-12] MEDS: POLYETHYLENE GLYCOL 3350 17 GM PACKET PO SCH (08:48)
[2018-11-12] MEDS: ENOXAPARIN 30 MG/0.3 ML SYRINGE SUBQ SCH (08:48)
[2018-11-12 09:44] LABS: HGB - HEMOGLOBIN 12.6 g/dL (14.0-18.0)
[2018-11-12] MEDS ORDERED: KETOROLAC 15 MG/ML VIAL IVP PRN (10:42)
--- NOTE | 2018-11-12 12:43 | PROVIDER PROGRESS NOTE ---
Subjective - Prog Note Date Prog Note Date: 11/12/18 Prog Note Time: 12:41 - Subjective Pt reports feeling: Improved (Up with PT today. Less hip pain) Objective - Vital Signs/Intake & Output Vital Signs: Vital Signs x48h Temp Pulse Resp BP Pulse Ox 11/12/18 08:00 37.0 C 89 18 120/71 93 11/12/18 06:49 88 18 106/59 L 93 Intake & Output: Intake & Output 11/09/18 11/10/18 11/11/18 11/12/18 23:59 23:59 23:59 23:59 Intake Total 2850 1400 Output Total 1000 250 Balance 1850 1150 - Lab Results Fish Bones: 11/12/18 09:15 11/11/18 01:14 Other Labs: Lab Results x24hrs 11/12/18 Range/Units 09:15 Hgb 12.6 L (14.0-18.0) g/dL Hct 36.0 L (42.0-52.0) % - Other Results/Comments Other Results/Comments: EXAM: Left hip: Dressing ok. Mild pain with hip motion. N/V ok distally. Up walking with PT. Assessment/Plan - Problem List (1) Closed intertrochanteric fracture of left femur Impression: Satis post op PLAN: Continue PT/mobilization. Qualifiers: Encounter type: initial encounter Fracture alignment: displaced Qualified Code(s): S72.142A - Displaced intertrochanteric fracture of left femur, initial encounter for closed fracture
--- NOTE | 2018-11-12 13:11 | PROVIDER PROGRESS NOTE ---
Assessment/Plan - Problem List (1) Closed intertrochanteric fracture of left femur Qualifiers: Encounter type: initial encounter Fracture alignment: displaced Qualified Code(s): S72.142A - Displaced intertrochanteric fracture of left femur, initial encounter for closed fracture Assessment/Plan: POD #1. Pt progressing nicely with pain control and started ambulating. (2) GERD (gastroesophageal reflux disease) Assessment/Plan: Will restart his Omeprazole and Ranitidine. (3) Apert syndrome Assessment/Plan: Stable. (4) Abnormal EKG Assessment/Plan: He has a hx of [place] and CAD. No cardio-pulmonary symptoms reported. - Current Meds Current Meds: Current Medications Generic Name Dose Route Start Last Admin Trade Name Freq PRN Reason Stop Dose Admin Hydrocodone Bitart/Acetaminophen 1 tab 11/11/18 12:31 11/12/18 03:29 [place] 5/325 PO 1 tab Q4HR PRN Administration PAIN Calcium Carbonate/Glycine 500 mg 11/11/18 21:23 11/11/18 21:58 Tums PO 500 mg TID PRN Administration Heartburn Enoxaparin Sodium 30 mg 11/12/18 09:00 11/12/18 08:48 Lovenox SUBQ 30 mg DAILY JOSE MANUEL Administration Acetaminophen 100 mls @ 400 mls/hr 11/11/18 12:31 11/11/18 22:30 Ofirmev IV Infused Q6HR PRN Infusion PAIN Sodium Chloride 1,000 mls @ 80 mls/hr 11/11/18 12:36 11/12/18 03:14 Normal Saline 0.9% IV 80 mls/hr .[id number] JOSE MANUEL Administration Ketorolac Tromethamine 15 mg 11/12/18 10:42 11/12/18 11:47 Toradol Inj (15mg) IVP 11/17/18 10:41 15 mg Q6HR PRN Administration PAIN Morphine Sulfate 2.5 mg 11/11/18 08:17 11/11/18 08:52 Morphine (Carpuject) IVP 2.5 mg Q4H PRN Administration SEVERE PAIN Morphine Sulfate 2 mg 11/11/18 12:31 11/12/18 08:48 Morphine (Carpuject) IVP 2 mg Q2HR PRN Administration PAIN Pantoprazole Sodium 40 mg 11/11/18 09:00 11/12/18 08:48 Protonix IVP 40 mg DAILY JOSE MANUEL Administration Polyethylene Glycol 17 gm 11/11/18 09:00 11/12/18 08:48 Miralax PO 17 gm DAILY JOSE MANUEL Administration Sodium Chloride 10 ml 11/11/18 09:00 11/12/18 00:33 Normal Saline Flush 0.9% IVP 10 ml 0100,0900,1700 JOSE MANUEL Administration Sodium Chloride 10 ml 11/11/18 17:00 11/12/18 08:48 Normal Saline Flush 0.9% IVP 10 ml 0100,0900,1700 JOSE MANUEL Administration - Lab Result Fish Bone Diagrams: 11/12/18 09:15 11/11/18 01:14 - Additional Planning My Orders: My Active Orders 11/12/18 10:42 Ketorolac Inj (15Mg) [Toradol Inj (15Mg)] 15 mg IVP Q6HR PRN Subjective - Subjective Patient Reports: Feeling Better, Resting Comfortably, Other (He had poor sleep due to indigestion all night and requests his treatment regimen of Omeprazole and Ranitidine, TUMS does not work.) Nursing Reports: Other (Started walking with PT.) Objective Vital Signs: Vital Signs - 24 hr 11/11/18 11/11/18 11/11/18 13:20 13:33 14:01 Temperature 36.6 C 36.6 C 36.7 C Heart Rate [ 78 75 74 Brachial] Respiratory 16 14 16 Rate Blood Pressure 112/74 129/75 139/88 H [Right Brachial artery] O2 Saturation 99 99 92 11/11/18 11/11/18 11/11/18 15:01 16:00 19:01 Temperature 36.4 C L 36.4 C L 36.3 C L Heart Rate [ 84 94 94 Brachial] Respiratory 16 20 20 Rate Blood Pressure 111/78 106/81 H 124/65 [Right Brachial artery] O2 Saturation 95 96 95 11/11/18 11/11/18 11/12/18 19:26 22:49 00:00 Temperature 36.5 C 36.7 C 37 C Heart Rate [ 93 87 93 Brachial] Respiratory 18 18 16 Rate Blood Pressure 125/70 114/72 106/70 [Right Brachial artery] O2 Saturation 96 95 98 11/12/18 11/12/18 11/12/18 03:30 06:49 08:00 Temperature 37.2 C 37.0 C Heart Rate [ 90 88 89 Brachial] Respiratory 18 18 18 Rate Blood Pressure 103/59 L 106/59 L 120/71 [Right Brachial artery] O2 Saturation 93 93 93 Oxygen O2 Source Room air I&O (Last 24 Hrs): Intake and Output Totals x24h 11/10/18 11/11/18 11/12/18 23:59 23:59 23:59 Intake Total 2850 1400 Output Total 1000 250 Balance 1850 1150 General: Alert, Oriented x3 HEENT: Other (Dysphormic facies) Neck: Supple Neuro: Non Focal Cardiovascular: Regular rate Respiratory: No respiratory distress Abdomen: Soft Extremities: No edema - Results Results: Laboratory Results WBC 11.6 x10^3/uL (4.8-10.8) H 11/11/18 00:48 RBC 4.42 10^6/uL (4.70-6.10) L 11/11/18 00:48 Hgb 12.6 g/dL (14.0-18.0) L 11/12/18 09:15 Hct 36.0 % (42.0-52.0) L 11/12/18 09:15 MCV 96.8 fL (80.0-94.0) H 11/11/18 00:48 MCH 33.4 pg (27.0-31.0) H 11/11/18 00:48 MCHC 34.5 g/dL (32.0-36.0) 11/11/18 00:48 RDW 13.7 % (12.0-15.0) 11/11/18 00:48 Plt Count 177 10^3/uL (130-450) 11/11/18 00:48 MPV 8.0 fL (7.4-11.4) 11/11/18 00:48 Neut # (Auto) 9.5 10^3/uL (1.5-6.6) H 11/11/18 00:48 Lymph # (Auto) 1.1 10^3/uL (1.5-3.5) L 11/11/18 00:48 [place] # (Auto) 0.9 10^3/uL (0.0-1.0) 11/11/18 00:48 Eos # (Auto) 0.1 10^3/uL (0.0-0.7) 11/11/18 00:48 Baso # (Auto) 0.0 10^3/uL (0.0-0.1) 11/11/18 00:48 Absolute Nucleated RBC 0.00 x10^3/uL 11/11/18 00:48 Nucleated RBC % 0.0 /100WBC 11/11/18 00:48 Sodium 134 mmol/L (135-145) L 11/11/18 01:14 Potassium 3.8 mmol/L (3.5-5.0) 11/11/18 01:14 Chloride 101 mmol/L (101-111) 11/11/18 01:14 Carbon Dioxide 23 mmol/L (21-32) 11/11/18 01:14 Anion Gap 10.0 (6-13) 11/11/18 01:14 BUN 18 mg/dL (6-20) 11/11/18 01:14 Creatinine 1.0 mg/dL (0.6-1.2) 11/11/18 01:14 Estimated GFR (MDRD) 72 (>89) L 11/11/18 01:14 Glucose 106 mg/dL (70-100) H 11/11/18 01:14 Calcium 8.6 mg/dL (8.5-10.3) 11/11/18 01:14 Urine Color YELLOW 11/10/18 23:30 Urine Clarity CLEAR (CLEAR) 11/10/18 23:30 Urine pH 7.0 PH (5.0-7.5) 11/10/18 23:30 Ur Specific [place] 1.020 (1.002-1.030) 11/10/18 23:30 Urine Protein NEGATIVE mg/dL (NEGATIVE) 11/10/18 23:30 Urine Glucose (UA) NEGATIVE mg/dL (NEGATIVE) 11/10/18 23:30 Urine Ketones NEGATIVE mg/dL (NEGATIVE) 11/10/18 23:30 Urine Occult Blood NEGATIVE (NEGATIVE) 11/10/18 23:30 Urine Nitrite NEGATIVE (NEGATIVE) 11/10/18 23:30 Urine Bilirubin NEGATIVE (NEGATIVE) 11/10/18 23:30 Urine Urobilinogen 0.2 (NORMAL) E.U./dL (NORMAL) 11/10/18 23:30 Ur Leukocyte Esterase NEGATIVE (NEGATIVE) 11/10/18 23:30 Ur Microscopic Review NOT INDICATED 11/10/18 23:30 Urine Culture Comments NOT INDICATED 11/10/18 23:30 Blood Type O POSITIVE 11/11/18 09:43 Antibody Screen NEGATIVE 11/11/18 09:43 - Procedures Procedures: Procedures ESOPHAGOGASTRODUODENOSCOPY [EGD] W/CLOSED BIOPSY (04/08/14) EXCISION OF CECUM, ENDO, DIAGN (04/18/17) EXCISION OF LOWER ESOPHAGUS, ENDO, DIAGN (10/05/16) EXCISION OF STOMACH, ENDO, DIAGN (10/05/16)
[2018-11-12] MEDS: PANTOPRAZOLE 40 MG TABLET PO SCH (14:09)
[2018-11-12] MEDS ORDERED: ZINC OXIDE 20% OINT 28.35 GM TUBE TOP PRN (16:39)
[2018-11-13] MEDS: HYDROcod/ACETAM 5/325 MG TABLET PO PRN ×3 (00:23→11:07)
[2018-11-13] MEDS: PANTOPRAZOLE 40 MG TABLET PO SCH (06:33)
[2018-11-13 09:04] LABS: HGB - HEMOGLOBIN 11.4 g/dL (14.0-18.0)
[2018-11-13] MEDS: ENOXAPARIN 30 MG/0.3 ML SYRINGE SUBQ SCH (09:06)
[2018-11-13] MEDS: POLYETHYLENE GLYCOL 3350 17 GM PACKET PO SCH (09:07)
--- NOTE | 2018-11-13 09:37 | PROVIDER PROGRESS NOTE ---
Subjective - Prog Note Date Prog Note Date: 11/13/18 Prog Note Time: 09:35 - Subjective Pt reports feeling: Improved (Less pain. Anxious to leave for SNF) Objective - Vital Signs/Intake & Output Vital Signs: Vital Signs x48h Temp Pulse Resp BP Pulse Ox 11/13/18 07:40 36.9 C 70 20 116/61 95 Intake & Output: Intake & Output 11/10/18 11/11/18 11/12/18 11/13/18 23:59 23:59 23:59 23:59 Intake Total 2850 3120 1170 Output Total 1000 800 525 Balance 1850 2320 645 - Lab Results Fish Bones: 11/13/18 08:53 11/11/18 01:14 Other Labs: Lab Results x24hrs 11/13/18 11/12/18 Range/Units 08:53 09:15 Hgb 11.4 L 12.6 L (14.0-18.0) g/dL Hct 33.0 L 36.0 L (42.0-52.0) % - Other Results/Comments Other Results/Comments: EXAM: Dresasing intact. Minimal pain with hip rotation. Moves toes well. Sensation ok. GOOD CAP FILLING Assessment/Plan - Problem List (1) Closed intertrochanteric fracture of left femur Impression: Satis post op PLAN: Mobilize as tolerated. To SNF soon. Follow up in orthopedic office in 2 weeks for aiyana out and new XR. Qualifiers: Encounter type: initial encounter Fracture alignment: displaced Qualified Code(s): S72.142A - Displaced intertrochanteric fracture of left femur, initial encounter for closed fracture
--- NOTE | 2018-11-13 10:51 | XRAY Report ---
Reason: LEFT HIP PINNING Procedure Date: 11/11/2018 Accession Number: [id number] / [id number] Procedure: [place] - OR C-Arm Procedure CPT Code: FULL RESULT: EXAM: FLUOROSCOPIC GUIDANCE EXAM DATE: 11/11/2018 12:22 PM. CLINICAL HISTORY: LEFT HIP PINNING. COMPARISON: LEFT HIP PINNING 11/11/2018 10:49 AM. FINDINGS: Intramedullary nail with distal interlocking screw and proximal partially-threaded cannulated screw traversing hip fracture. IMPRESSION: Fluoroscopic guidance provided for left hip pinning. Total fluoroscopy time: 0.29 minutes. Number of images: 4. RADIA
[2018-11-13] MEDS ORDERED: PHENOL THROAT SPRAY 177 ML MM PRN (11:28)
[2018-11-13] MEDS: BENZOCAINE/MENTHOL LOZENGE MM PRN (12:37)
[2018-11-13] MEDS ORDERED: BENZOCAINE/MENTHOL LOZENGE MM PRN (12:55)
--- NOTE | 2018-11-13 12:58 | PROVIDER PROGRESS NOTE ---
Assessment/Plan - Problem List (1) Closed intertrochanteric fracture of left femur Qualifiers: Encounter type: initial encounter Fracture alignment: displaced Qualified Code(s): S72.142A - Displaced intertrochanteric fracture of left femur, initial encounter for closed fracture Assessment/Plan: Continue to progress with PT Rehab, and plan to DCh to a SNF, per PT needs. (2) GERD (gastroesophageal reflux disease) Assessment/Plan: Symptoms resolved with resuming his home doses of Omeprazole and Ranitidine. (3) Apert syndrome Assessment/Plan: Stable (4) Abnormal EKG Assessment/Plan: Echo done pre-op hip surgery, showed no resting LV wall motion abnormalities. - Current Meds Current Meds: Current Medications Generic Name Dose Route Start Last Admin Trade Name Freq PRN Reason Stop Dose Admin Hydrocodone Bitart/Acetaminophen 1 tab 11/11/18 12:31 11/13/18 11:07 [place] 5/325 PO 1 tab Q4HR PRN Administration PAIN Calcium Carbonate/Glycine 500 mg 11/11/18 21:23 11/11/18 21:58 Tums PO 500 mg TID PRN Administration Heartburn Enoxaparin Sodium 30 mg 11/12/18 09:00 11/13/18 09:06 Lovenox SUBQ 30 mg DAILY JOSE MANUEL Administration Acetaminophen 100 mls @ 400 mls/hr 11/11/18 12:31 11/11/18 22:30 Ofirmev IV Infused Q6HR PRN Infusion PAIN Ketorolac Tromethamine 15 mg 11/12/18 10:42 11/12/18 11:47 Toradol Inj (15mg) IVP 11/17/18 10:41 15 mg Q6HR PRN Administration PAIN Morphine Sulfate 2.5 mg 11/11/18 08:17 11/11/18 08:52 Morphine (Carpuject) IVP 2.5 mg Q4H PRN Administration SEVERE PAIN Morphine Sulfate 2 mg 11/11/18 12:31 11/12/18 08:48 Morphine (Carpuject) IVP 2 mg Q2HR PRN Administration PAIN Pantoprazole Sodium 40 mg 11/12/18 14:00 11/13/18 06:33 Protonix PO 40 mg QDAC JOSE MANUEL Administration Polyethylene Glycol 17 gm 11/11/18 09:00 11/13/18 09:07 Miralax PO 17 gm DAILY JOSE MANUEL Administration Ranitidine HCl 150 mg 11/12/18 21:00 11/13/18 09:06 Zantac PO 150 mg BID JOSE MANUEL Administration Throat Lozenges 1 lozenge 11/13/18 11:28 11/13/18 12:37 Cepacol MM 1 lozenge Q2HR PRN Administration Throat pain - Lab Result Fish Bone Diagrams: 11/13/18 08:53 11/11/18 01:14 - Additional Planning My Orders: My Active Orders 11/12/18 14:00 Pantoprazole [Protonix] 40 mg PO QDAC 11/12/18 16:39 Min Oil/Dimeth/Coconut Oil Crm [Cavilon] 1 applic TOP PRN PRN Zinc Oxide 20% Oint [Zinc Oxide] 1 applic TOP PRN PRN 11/12/18 21:00 raNITIdine [Zantac] 150 mg PO BID 11/13/18 11:28 Benzocaine/Menthol [Cepacol] 1 lozenge MM Q2HR PRN Phenol [Chloraseptic] 2 sprays MM Q2HR PRN 11/13/18 12:55 Benzocaine/Menthol [Cepacol] 1 lozenge MM Q2HR PRN Subjective - Subjective Patient Reports: Other (c/o hoarseness and froggy voice, requests throat lozenge) Objective Vital Signs: Vital Signs - 24 hr 11/12/18 11/12/18 11/13/18 15:33 23:58 07:40 Temperature 36.8 C 37.3 C 36.9 C Heart Rate [ Activity] Heart Rate [ 83 102 H 70 Brachial] Heart Rate [ Sitting] Heart Rate [ Supine] Respiratory 18 16 20 Rate Blood Pressure [Activity] Blood Pressure 111/69 127/64 116/61 [Right Brachial artery] Blood Pressure [Sitting] Blood Pressure [Supine] O2 Saturation 96 95 95 11/13/18 10:20 Temperature Heart Rate [ 72 Activity] Heart Rate [ Brachial] Heart Rate [ 87 Sitting] Heart Rate [ 70 Supine] Respiratory Rate Blood Pressure 99/52 L [Activity] Blood Pressure [Right Brachial artery] Blood Pressure 114/67 [Sitting] Blood Pressure 113/63 [Supine] O2 Saturation Oxygen O2 Source Room air I&O (Last 24 Hrs): Intake and Output Totals x24h 11/11/18 11/12/18 11/13/18 23:59 23:59 23:59 Intake Total 2850 3120 1570 Output Total 1000 800 525 Balance 1850 2320 1045 General: Other (Appears fatigued) HEENT: Mucous membr. moist/pink Neck: Supple Neuro: Non Focal Cardiovascular: Regular rate Respiratory: No respiratory distress, Breath sounds nml Abdomen: Soft Extremities: No edema - Results Results: Laboratory Results WBC 11.6 x10^3/uL (4.8-10.8) H 11/11/18 00:48 RBC 4.42 10^6/uL (4.70-6.10) L 11/11/18 00:48 Hgb 11.4 g/dL (14.0-18.0) L 11/13/18 08:53 Hct 33.0 % (42.0-52.0) L 11/13/18 08:53 MCV 96.8 fL (80.0-94.0) H 11/11/18 00:48 MCH 33.4 pg (27.0-31.0) H 11/11/18 00:48 MCHC 34.5 g/dL (32.0-36.0) 11/11/18 00:48 RDW 13.7 % (12.0-15.0) 11/11/18 00:48 Plt Count 177 10^3/uL (130-450) 11/11/18 00:48 MPV 8.0 fL (7.4-11.4) 11/11/18 00:48 Neut # (Auto) 9.5 10^3/uL (1.5-6.6) H 11/11/18 00:48 Lymph # (Auto) 1.1 10^3/uL (1.5-3.5) L 11/11/18 00:48 [place] # (Auto) 0.9 10^3/uL (0.0-1.0) 11/11/18 00:48 Eos # (Auto) 0.1 10^3/uL (0.0-0.7) 11/11/18 00:48 Baso # (Auto) 0.0 10^3/uL (0.0-0.1) 11/11/18 00:48 Absolute Nucleated RBC 0.00 x10^3/uL 11/11/18 00:48 Nucleated RBC % 0.0 /100WBC 11/11/18 00:48 Sodium 134 mmol/L (135-145) L 11/11/18 01:14 Potassium 3.8 mmol/L (3.5-5.0) 11/11/18 01:14 Chloride 101 mmol/L (101-111) 11/11/18 01:14 Carbon Dioxide 23 mmol/L (21-32) 11/11/18 01:14 Anion Gap 10.0 (6-13) 11/11/18 01:14 BUN 18 mg/dL (6-20) 11/11/18 01:14 Creatinine 1.0 mg/dL (0.6-1.2) 11/11/18 01:14 Estimated GFR (MDRD) 72 (>89) L 11/11/18 01:14 Glucose 106 mg/dL (70-100) H 11/11/18 01:14 Calcium 8.6 mg/dL (8.5-10.3) 11/11/18 01:14 Urine Color YELLOW 11/10/18 23:30 Urine Clarity CLEAR (CLEAR) 11/10/18 23:30 Urine pH 7.0 PH (5.0-7.5) 11/10/18 23:30 Ur Specific [place] 1.020 (1.002-1.030) 11/10/18 23:30 Urine Protein NEGATIVE mg/dL (NEGATIVE) 11/10/18 23:30 Urine Glucose (UA) NEGATIVE mg/dL (NEGATIVE) 11/10/18 23:30 Urine Ketones NEGATIVE mg/dL (NEGATIVE) 11/10/18 23:30 Urine Occult Blood NEGATIVE (NEGATIVE) 11/10/18 23:30 Urine Nitrite NEGATIVE (NEGATIVE) 11/10/18 23:30 Urine Bilirubin NEGATIVE (NEGATIVE) 11/10/18 23:30 Urine Urobilinogen 0.2 (NORMAL) E.U./dL (NORMAL) 11/10/18 23:30 Ur Leukocyte Esterase NEGATIVE (NEGATIVE) 11/10/18 23:30 Ur Microscopic Review NOT INDICATED 11/10/18 23:30 Urine Culture Comments NOT INDICATED 11/10/18 23:30 Blood Type O POSITIVE 11/11/18 09:43 Antibody Screen NEGATIVE 11/11/18 09:43 - Procedures Procedures: Procedures ESOPHAGOGASTRODUODENOSCOPY [EGD] W/CLOSED BIOPSY (04/08/14) EXCISION OF CECUM, ENDO, DIAGN (04/18/17) EXCISION OF LOWER ESOPHAGUS, ENDO, DIAGN (10/05/16) EXCISION OF STOMACH, ENDO, DIAGN (10/05/16)
[2018-11-13] MEDS ORDERED: SODIUM CHLORIDE FLUSH 0.9% 10 ML SYRINGE ONE (13:58)
[2018-11-13] MEDS: ACETAMINOPHEN 325 MG TABLET PO PRN ×2 (14:05→21:22)
[2018-11-13] MEDS: SENNA 8.6 MG TABLET PO PRN (21:04)
[2018-11-13] MEDS: MIN OIL/DIMETHICON/COCONUT OIL 92 GM TUBE TOP PRN (21:11)
[2018-11-14] MEDS: PANTOPRAZOLE 40 MG TABLET PO SCH (06:41)
[2018-11-14] MEDS ORDERED: NAPROXEN 250 MG TABLET PO PRN (08:22)
[2018-11-14] MEDS ORDERED: METHOCARBAMOL 500 MG TABLET PO PRN (08:22)
[2018-11-14 09:31] VITALS: BP 126/57
[2018-11-14] MEDS: SENNA 8.6 MG TABLET PO PRN (10:13)
[2018-11-14] MEDS: ENOXAPARIN 30 MG/0.3 ML SYRINGE SUBQ SCH (10:14)
[2018-11-14] MEDS: POLYETHYLENE GLYCOL 3350 17 GM PACKET PO SCH (10:14)
--- NOTE | 2018-11-14 10:14 | PROVIDER PROGRESS NOTE ---
Subjective - Prog Note Date Prog Note Date: 11/14/18 Prog Note Time: 10:13 - Subjective Pt reports feeling: Improved (Less pain) Objective - Vital Signs/Intake & Output Vital Signs: Vital Signs x48h Temp Pulse Resp BP Pulse Ox 11/14/18 09:30 36.9 C 75 16 126/57 L 95 Intake & Output: Intake & Output 11/11/18 11/12/18 11/13/18 11/14/18 23:59 23:59 23:59 23:59 Intake Total 2850 3120 2270 360 Output Total 7990 509 5780 875 Balance 1850 2320 320 -515 - Lab Results Fish Bones: 11/13/18 08:53 11/11/18 01:14 - Other Results/Comments Other Results/Comments: EXAM: Minimal pain with hip motion. N/V ok distally. Up in PT Assessment/Plan - Problem List (1) Closed intertrochanteric fracture of left femur Impression: Satis post op PLAN: To SNF soon. Follow up in 2 weeks in orthopedic clinic for aiyana out and XR. Continue PT for walker ambulation - WBAT on left. Qualifiers: Encounter type: initial encounter Fracture alignment: displaced Qualified Code(s): S72.142A - Displaced intertrochanteric fracture of left femur, initial encounter for closed fracture
--- NOTE | 2018-11-14 11:38 | Discharge Plan ---
Discharge Plan for SNF / TERRA - Discharge Plan And Transition Orders Disposition: 03 SNF DC/Xfer Condition: Good Allergies and Adverse Reactions: Allergies Allergy/AdvReac Type Severity Reaction Status Date / Time No Known Drug Allergies Allergy Verified 10/05/16 12:30 - SNF / PENITENTIARY Transition Orders Admit to (Facility): [facility] Discharge Diagnosis: 1. Closed intertrochanteric fracture of the left femur, Status post closed reduction and short InterTAN nailing of left hip, Postoperative day #3 2. Gastroesophageal reflux disease 3. Apert syndrome 4. Osteoporosis 5. tobacco abuse 6. hypogonadism Medicare Certification Statement: I certify that [facility] care is medically necessary on a continuing basis for any of the conditions for which she/he is receiving care during hospitalization. Notify PCP of admission and forward orders to primary provider for signature. Weight on admission and: Monthly Other Notification Orders: Call PCP immediately if patient develops dyspnea, chest pain/tightness or edema. House Bowel Program: Yes Additional Bowel Program Orders: If no BM after 2 days, nurse may give M.O.M. 30ml PO PRN and/or ducolax Supp 1 NE and/or FLOYD 250mg P.O., and/or senna 1-2 tabs PO. On day 3 nurse may give repeat above order until residents constipation is resolved. Annual Influenza Vaccine (between May 27 and December 24): Yes Two-step PPD per [facility] [phone] or approved exception documents: Yes Medication Orders: PLEASE REFER TO THE DISCHARGE MEDICATION LIST. - Medications New Prescriptions: Acetaminophen [Tylenol] 650 mg PO Q4HR PRN #1 tablet PRN Reason: Pain 1 to 4 HYDROcod/ACETAM 5/325 [[place] 5/325] 1 tab PO Q4HR PRN #30 tablet PRN Reason: Pain Methocarbamol [Robaxin] 500 mg PO Q6HR PRN #30 tablet PRN Reason: Spasms Enoxaparin [Lovenox] 30 mg SUBQ DAILY #14 syringe Naproxen [Naprosyn] 250 mg PO TID PRN #1 tablet PRN Reason: Pain Wheat Dextrin [Benefiber] 1 packet PO DAILY PRN #30 packet PRN Reason: Constipation
[2018-11-14] MEDS ORDERED: WHEAT DEXTRIN POWDER PACKET PO PRN (11:50)
[2018-11-14] MEDS: HYDROcod/ACETAM 5/325 MG TABLET PO PRN (11:55)
[2018-11-14] MEDS: BENZOCAINE/MENTHOL LOZENGE MM PRN (11:55)
[2018-11-14] MEDS: MIN OIL/DIMETHICON/COCONUT OIL 92 GM TUBE TOP PRN (12:45)
--- NOTE | 2018-11-16 03:03 | DISCHARGE SUMMARY ---
Physician: Darlene Dubois MD DATE OF ADMISSION: 11/11/2018 DATE OF DISCHARGE: 11/14/2018 DISCHARGE DIAGNOSES 1. Closed fracture, left femur. 2. Abnormal electrocardiogram. 3. Gastroesophageal reflux disease. 4. Apert syndrome. 4. Hypogonadism, on testosterone. 5. Osteoporosis. 6. Tobacco abuse. DISCHARGE MEDICATIONS 1. Omeprazole 20 mg daily. 2. Tylenol 650 mg every 4 hours as needed for pain. 3. [place] 5/325 one tablet every 4 hours as needed for pain. 4. Robaxin 500 mg p.o. q.6h. as needed for muscle spasms of operated-on thigh. 5. Calcium 500 mg p.o. t.i.d. p.r.n. indigestion. 6. Lovenox 30 mg subcutaneously daily for the next 15 days. 7. Naprosyn 250 mg p.o. t.i.d. p.r.n. pain. 8. Zantac 150 mg p.o. b.i.d. for GERD. 9. Benefiber 1 packet daily for loose stools. PRINCIPAL PROCEDURES 1. Closed reduction and short intertrochanteric nailing of left hip. 2. Echocardiogram done for abnormal EKG. Showed left ventricle size normal. Left ventricular wall thickness normal. Left ventricular ejection fraction of 60%-65%. Right ventricle normal in size and function. No significantly found valvular heart disease. 3. Hip and pelvis x-ray with sclerosis in the basicervical intertrochanteric left femur, suspicious for impacted fracture. 4. Lower extremity CT with intertrochanteric impaction of left hip. 5. Chest x-ray. No evidence of acute cardiopulmonary infiltrate. HOSPITAL COURSE: Patient is a pleasant 78-year-old white male with Apert syndrome. 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 He was distracted while taking a step, tripped and slipped. He bumped his head into the wall. He could not bear weight on his left hip when he attempted to stand. While he has a history of OK, he has not had any recent change in cardiovascular endurance, arrhythmias, and denies any angina or history of valvular heart disease. He is legally blind and hard of hearing. In the emergency room, he was afebrile, normotensive. Found to have a left hip fracture. Orthopedic evaluation was done by Dr. Maykel Rojas. He underwent surgery with intertrochanteric nailing of the left femur fracture. Reflux disease was bitterly complained of by the patient and he was put on histamine blockers as well as Tums p.r.n. An abnormal EKG resulted in negative troponins and a bedside echo was done and as above. He is continued on his testosterone for hypogonadism and osteoporosis. He was strongly encouraged to stop smoking, which was a risk identified on admission. He did have significant leg and muscle spasms in the area of his surgery, for which he needed Baclofen. He was transported to [facility] via wheelchair van for rehabilitation. It is his expectation that he will return home to independent living. PHYSICAL EXAMINATION VITAL SIGNS: Temperature was 36.9, pulse 75, blood pressure 126/57, respirations 16 and 95% on room air. GENERAL APPEARANCE: He is a short-statured 5-feet 4-inch male at 55.5 kg. 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 He is alert, oriented, not happy because he keeps on having intermittent muscle spasms; and because of his lack of vision, he is irritated that he has to have the trays to eat moved forward to him so he can eat. NECK: Supple. LUNGS: Clear to auscultation and percussion. PMI is normally placed with a regular rate and rhythm. ABDOMEN: Soft, nontender. EXTREMITIES: The left lateral hip wound is closed, covered by bandages. There is no surrounding redness or erythema. He has no clubbing, cyanosis or edema. Occasionally, he has some dysphagia and will choke with swallowing water. He is concerned about that. He has had previous history of esophageal dilation. He was seen by Physical Therapy, and he can transfer with a moderate assist from a sitting to standing position. He is able to scoot slowly with standby assist. He has to sit for at least a minute before he is ready to stand. He is able to stand for at least 3 minutes. Over the course of 2 visits, he is making steady progress with his ability to walk with a walker, but he does complain of pain. The first day he did so well, he thought he would get out of the hospital on postop day 1. By postop day 2, he was quite cranky. He is discharged in stable condition to [facility]. He is asked to follow up with his primary care provider, Sabrina Lieberman PA-C after discharge. Greater than 30 minutes was spent coordinating discharge. TD: 11/15/2018 21:31 YUE
== END 2018-11-14 13:50 | DRG 482 ==
LOC: ED 23:06 → MS2 11-11 03:29
PROVIDERS: ADMIT Internal Medicine; ATTEND Specialist
PROC: 0QS736Z Reposition Left Upper Femur with Intramedullary Internal Fixation Device, Percutaneous Approach (ICD-10-PCS; principal; 2018-11-11 10:00)
DX: S72.142A Displaced intertrochanteric fracture of left femur, initial encounter for closed fracture (principal); W01.198A Fall on same level from slipping, tripping and stumbling with subsequent striking against other object, initial encounter; Y92.001 Dining room of unspecified non-institutional (private) residence as the place of occurrence of the external cause; E78.00 Pure hypercholesterolemia, unspecified; R94.31 Abnormal electrocardiogram [ECG] [EKG]; E29.1 Testicular hypofunction; I49.9 Cardiac arrhythmia, unspecified; Q87.0 Congenital malformation syndromes predominantly affecting facial appearance; M81.0 Age-related osteoporosis without current pathological fracture; I25.10 Atherosclerotic heart disease of native coronary artery without angina pectoris; F17.210 Nicotine dependence, cigarettes, uncomplicated; K21.9 Gastro-esophageal reflux disease without esophagitis; F17.200 Nicotine dependence, unspecified, uncomplicated; J32.9 Chronic sinusitis, unspecified; H54.8 Legal blindness, as defined in USA; H91.90 Unspecified hearing loss, unspecified ear; M62.838 Other muscle spasm; R13.10 Dysphagia, unspecified; Z85.819 Personal history of malignant neoplasm of unspecified site of lip, oral cavity, and pharynx; Z87.11 Personal history of peptic ulcer disease; I25.2 Old myocardial infarction; Z86.74 Personal history of sudden cardiac arrest; Z79.899 Other long term (current) drug therapy
CPT/HCPCS: 36415; 71045; 80048; 81001; 81003; 85014; 85018; 85025; 86850; 86900; 86901; 87086; 93005; 93306; 96361; 96374; 96375; 96376; 99284; 99285

== ENCOUNTER 2018-12-25 15:05 | Outpatient (CLI) | payer MEDICARE ==
[2018-12-25 18:11] LABS: ALBUMIN 3.8 g/dL (3.2-5.5); ALBUMIN/GLOBULIN RATIO 1.2 (1.0-2.2); BILIRUBIN,TOTAL 0.6 mg/dL (0.2-1.0); CALCIUM 9.3 mg/dL (8.5-10.3); CREATININE 0.8 mg/dL (0.6-1.2); MAGNESIUM 1.9 mg/dL (1.7-2.8); TOTAL PROTEIN 6.9 g/dL (6.7-8.2)
[2018-12-25 19:18] LABS: BASOPHILS # (AUTO) 0.1 10^3/uL (0.0-0.1); BASOPHILS % (AUTO) 0.8 %; EOSINOPHILS # (AUTO) 0.2 10^3/uL (0.0-0.7); EOSINOPHILS % (AUTO) 3.2 %; HGB - HEMOGLOBIN 13.9 g/dL (14.0-18.0); LYMPHOCYTES # (AUTO) 1.1 10^3/uL (1.5-3.5); LYMPHOCYTES % (AUTO) 16.1 %; MEAN CORPUSCULAR HEMOGLOBIN 33.9 pg (27.0-31.0); MEAN CORPUSCULAR HGB CONC 34.2 g/dL (32.0-36.0); MEAN CORPUSCULAR VOLUME 98.9 fL (80.0-94.0); MEAN PLATELET VOLUME 7.3 fL (7.4-11.4); MONOCYTES # (AUTO) 0.7 10^3/uL (0.0-1.0); NEUTROPHILS # (AUTO) 4.7 10^3/uL (1.5-6.6); NEUTROPHILS % (AUTO) 69.9 %; PLT - PLATELET COUNT 258 10^3/uL (130-450); RED BLOOD COUNT 4.11 10^6/uL (4.70-6.10); RED CELL DISTRIBUTION WIDTH 13.4 % (12.0-15.0); WHITE BLOOD COUNT 6.7 x10^3/uL (4.8-10.8)
== END 2018-12-25 15:06 | disposition home or self-care (01) ==
LOC: LAB.F 15:05
PROVIDERS: ATTEND Physician Assistant Medical
DX: T14.90XD Injury, unspecified, subsequent encounter (principal); R25.2 Cramp and spasm; E03.9 Hypothyroidism, unspecified
CPT/HCPCS: 36415; 80053; 83735; 84443; 85025

== ENCOUNTER 2019-03-31 11:21 | Outpatient (CLI) | payer MEDICARE ==
[2019-03-31 11:47] LABS: BASOPHILS # (AUTO) 0.1 10^3/uL (0.0-0.1); EOSINOPHILS # (AUTO) 0.1 10^3/uL (0.0-0.7); EOSINOPHILS % (AUTO) 1.9 %; HGB - HEMOGLOBIN 12.9 g/dL (14.0-18.0); LYMPHOCYTES # (AUTO) 1.2 10^3/uL (1.5-3.5); LYMPHOCYTES % (AUTO) 17.6 %; MEAN CORPUSCULAR HEMOGLOBIN 33.2 pg (27.0-31.0); MEAN CORPUSCULAR HGB CONC 33.4 g/dL (32.0-36.0); MEAN CORPUSCULAR VOLUME 99.2 fL (80.0-94.0); MEAN PLATELET VOLUME 8.6 fL (7.4-11.4); MONOCYTES % (AUTO) 14.7 %; NEUTROPHILS # (AUTO) 4.4 10^3/uL (1.5-6.6); NEUTROPHILS % (AUTO) 64.2 %; PLT - PLATELET COUNT 261 10^3/uL (130-450); RED BLOOD COUNT 3.89 10^6/uL (4.70-6.10); RED CELL DISTRIBUTION WIDTH 13.6 % (12.0-15.0); WHITE BLOOD COUNT 6.9 x10^3/uL (4.8-10.8)
[2019-03-31 11:56] LABS: ALBUMIN 3.5 g/dL (3.2-5.5); ALBUMIN/GLOBULIN RATIO 1.1 (1.0-2.2); BILIRUBIN,TOTAL 0.7 mg/dL (0.2-1.0); CALCIUM 9.1 mg/dL (8.5-10.3); TOTAL PROTEIN 6.7 g/dL (6.7-8.2)
== END 2019-03-31 11:22 | disposition home or self-care (01) ==
LOC: LAB 11:21
PROVIDERS: ATTEND Physician Assistant Medical
DX: R60.9 Edema, unspecified (principal); Z51.81 Encounter for therapeutic drug level monitoring
CPT/HCPCS: 36415; 80053; 85025

== ENCOUNTER 2019-10-19 12:12 | Outpatient (CLI) | payer MEDICARE ==
[2019-10-19 18:25] LABS: BASOPHILS # (AUTO) 0.1 10^3/uL (0.0-0.1); BASOPHILS % (AUTO) 1.1 %; EOSINOPHILS # (AUTO) 0.2 10^3/uL (0.0-0.7); EOSINOPHILS % (AUTO) 2.4 %; HGB - HEMOGLOBIN 13.7 g/dL (14.0-18.0); LYMPHOCYTES # (AUTO) 1.7 10^3/uL (1.5-3.5); LYMPHOCYTES % (AUTO) 27.1 %; MEAN CORPUSCULAR HEMOGLOBIN 31.6 pg (27.0-31.0); MEAN CORPUSCULAR HGB CONC 32.6 g/dL (32.0-36.0); MEAN CORPUSCULAR VOLUME 96.8 fL (80.0-94.0); MEAN PLATELET VOLUME 9.2 fL (7.4-11.4); MONOCYTES # (AUTO) 0.7 10^3/uL (0.0-1.0); MONOCYTES % (AUTO) 11.1 %; NEUTROPHILS # (AUTO) 3.6 10^3/uL (1.5-6.6); NEUTROPHILS % (AUTO) 57.8 %; PLT - PLATELET COUNT 259 10^3/uL (130-450); RED BLOOD COUNT 4.34 10^6/uL (4.70-6.10); RED CELL DISTRIBUTION WIDTH 12.7 % (12.0-15.0); WHITE BLOOD COUNT 6.3 x10^3/uL (4.8-10.8)
[2019-10-19 18:35] LABS: ALBUMIN 3.5 g/dL (3.2-5.5); ALBUMIN/GLOBULIN RATIO 1.1 (1.0-2.2); BILIRUBIN,TOTAL 0.2 mg/dL (0.2-1.0); CALCIUM 9.1 mg/dL (8.5-10.3); CREATININE 0.8 mg/dL (0.6-1.2); TOTAL PROTEIN 6.7 g/dL (6.7-8.2)
== END 2019-10-19 12:13 | disposition home or self-care (01) ==
LOC: LAB.S 12:12
PROVIDERS: ATTEND Physician Assistant Medical
DX: Z51.81 Encounter for therapeutic drug level monitoring (principal); Z12.5 Encounter for screening for malignant neoplasm of prostate; R63.4 Abnormal weight loss; E03.9 Hypothyroidism, unspecified; Z79.899 Other long term (current) drug therapy
CPT/HCPCS: 36415; 80053; 84443; 85025; G0103; 84153

== ENCOUNTER 2019-11-12 13:54 | Outpatient (CLI) | payer MEDICARE ==
[2019-11-12 17:13] LABS: BILIRUBIN,URINE NEGATIVE (NEGATIVE); GLUCOSE, URINE (UA) NEGATIVE (NEGATIVE); KETONES,URINE (UA) NEGATIVE (NEGATIVE); LEUKOCYTE ESTERASE, URINE NEGATIVE (NEGATIVE); NITRITE,URINE NEGATIVE (NEGATIVE); OCCULT BLOOD,URINE NEGATIVE (NEGATIVE); PROTEIN,URINE NEGATIVE (NEGATIVE); UROBILINOGEN,URINE 0.2 (NORMAL) E.U./dL (NORMAL)
[2019-11-12 17:20] LABS: CLARITY,URINE HAZY (CLEAR)
[2019-11-12 17:40] LABS: AMORPHOUS SEDIMENT,UR Marked /LPF; BACTERIA,URINE None Seen /HPF (None Seen); RBC,URINE None Seen /HPF (0-5); SQUAMOUS EPITHELIAL CELL,UR NONE SEEN (<= Few)
== END 2019-11-12 13:55 | disposition home or self-care (01) ==
LOC: LAB.S 13:54
PROVIDERS: ATTEND Internal Medicine
DX: F32.9 Major depressive disorder, single episode, unspecified (principal); K21.9 Gastro-esophageal reflux disease without esophagitis; E03.9 Hypothyroidism, unspecified; M79.605 Pain in left leg; M79.604 Pain in right leg; M54.30 Sciatica, unspecified side; R30.0 Dysuria
CPT/HCPCS: 81001; 87086

== ENCOUNTER 2019-11-13 16:35 | Outpatient (CLI) | payer MEDICARE | END 2019-11-13 16:36 | disposition critical access hospital (66) | LOC: EMS 16:35 | PROVIDERS: ATTEND Surgery | DX: M25.552 Pain in left hip (principal); M54.5 Low back pain; W19.XXXA Unspecified fall, initial encounter; Y92.008 Other place in unspecified non-institutional (private) residence as the place of occurrence of the external cause | CPT/HCPCS: A0425; A0429 ==

== ENCOUNTER 2019-11-13 17:00 | Emergency (ER) | payer MEDICARE ==
--- NOTE | 2019-11-13 18:10 | ED Physician Documentation ---
PD HPI Fall - Stated complaint Stated Complaint: GLF - Chief complaint Chief Complaint: General - History obtained from History obtained from: Patient - History of Present Illness Mechanism of injury: Unknown Fall distance: Standing position Where injury occurred: Home Timing - onset: Today (The patient's daughter says the patient seemed to be his usual alertness and activity this morning and early afternoon. He has been having pain chronically in his pelvis and some antalgic gait subsequent to hip and pelvic fractures from a year ago. He has had a little bit of generalized weakness the last week or 2. She left him about 2 in the afternoon and returned at 430 and found him on his back on the porch awake but confused and appearing in discomfort. He was able answer questions simply but did not remember whether he fell or not. He denied any chest pain or trouble breathing. He was having some headache and also pain in the lower back and pelvis. He was brought to the hospital by EMS.) Injury(ies) location: Head (some swelling apparent right frontal eyebrow area.), Back (lower back/pelvis area) Quality of pain: Pain Associated symptoms: AMS (Confused answers and unable to recall symptoms leading to him being on the ground porch floor). No: Weakness, Paresthesias, Dyspnea Worsens with: Movement (Of the lower back and legs causes pain in the lower back and pelvis) Contributing factors: No: Anticoagulated, Intoxicated Similar symptoms before: Diagnosis (He had had a mechanical fall a year ago with subsequent rib injury and pelvic and left hip fractures. Without incident he was able to recall the reason for falling and the events of it. He does not recall the reason for her fall or any preceding symptoms on this event today.) Recently seen: Not recently seen Review of Systems Unable to obtain: Confused, Other (info from daughter and he is able to answer simple questions) Constitutional: denies: Fever Nose: denies: Congestion Cardiac: denies: Chest pain / pressure Respiratory: denies: Cough GI: denies: Abdominal Pain, Vomiting, Diarrhea, Bloody / black stool Musculoskeletal: reports: Other (Chronic pelvic and left hip pain from fractures a year ago. Some antalgic gait according to his daughter subsequent to the injuries.) Neurologic: reports: Generalized weakness. 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) Derm: None - Past Surgical History Past Surgical History: Yes General: Gastric surgery, Colonoscopy Ortho: Other - Present Medications Home Medications: Ambulatory Orders Medication Instructions Recorded Confirmed Omeprazole [PriLOSEC] 20 mg PO QDAC 04/08/14 11/11/18 Acetaminophen [Tylenol] 650 mg PO Q4HR PRN #1 tablet 11/14/18 Calcium Carbonate [Tums (Calcium 500 mg PO TID PRN tablet 11/14/18 Carbonate 500mg)] Enoxaparin [Lovenox] 30 mg SUBQ DAILY #14 syringe 11/14/18 HYDROcod/ACETAM 5/325 [[place] 5/325] 1 tab PO Q4HR PRN #30 tablet 11/14/18 Naproxen [Naprosyn] 250 mg PO TID PRN #1 tablet 11/14/18 Wheat Dextrin [Benefiber] 1 packet PO DAILY PRN #30 packet 11/14/18 methocarbamoL [Robaxin] 500 mg PO Q6HR PRN #30 tablet 11/14/18 raNITIdine [Zantac] 150 mg PO BID #0 11/14/18 11/11/18 - Allergies Allergies/Adverse Reactions: Allergies Allergy/AdvReac Type Severity Reaction Status Date / Time No Known Drug Allergies Allergy Verified 11/13/19 17:14 - Social History Does the pt smoke?: Yes Smoking Status: Current every day smoker Does the pt drink ETOH?: No Does the pt have substance abuse?: No - Immunizations Immunizations are current?: Yes - POLST Patient has POLST: No POLST Status: Full Code PD ED PE NORMAL - Vitals Vital signs reviewed: Yes - General General: Well developed/nourished. No: Alert and oriented X 3 (He is alert with eyes open and follows commands for squeezing my hands and movement. He is able to answer simple questions. He does not recall the event preceding or the fall itself. He is oriented to person and place but not really the time.), No acute distress (He does seem a little bit anxious and agitated. 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 There is what appears to be some swelling and a mild abrasion on the right lateral periorbital area. The neck itself does not have any tenderness.) - Neck Neck: Supple, no meningeal sign, No bony TTP, No adenopathy - Cardiac Cardiac: RRR, No murmur, Other (No chest wall tenderness or deformity) - Respiratory Respiratory: No respiratory distress, Clear bilaterally - Abdomen Abdomen: Normal bowel sounds, Soft, Non tender, Non distended - Back Back: No CVA TTP, Other (There is some tenderness in the thoracolumbar area and also in the sacral area to palpation. There is no obvious deformity. There is no crepitance with compressive testing of the pelvis. Range of motion passively of both hips does not cause any pain. Active lifting of his leg causes pain in the posterior pelvis and low back. He has normal sensation in both legs. Is able to push down and lift up with both feet.) - Derm Derm: Normal color, Warm and dry - Extremities Extremities: No tenderness to palpate, No edema, No calf tenderness / cord - Neuro Neuro: quilt maker 2-12 intact, No motor deficit, No sensory deficit Eye Opening: Spontaneous Motor: Obeys Commands Verbal: Confused GCS Score: 14 - Psych Psych: No: Normal affect (somewhat agitated) Results - Vitals Vitals: Vital Signs - 24 hr 11/13/19 11/13/19 11/13/19 17:14 18:12 20:31 Temperature 36.6 C 36.4 C L Heart Rate 78 79 97 Respiratory 17 20 16 Rate Blood Pressure 143/88 H 147/88 H 135/77 H O2 Saturation 99 98 99 11/13/19 21:30 Temperature Heart Rate 84 Respiratory 23 Rate Blood Pressure 162/94 H O2 Saturation 98 Oxygen O2 Source Room air - Labs Labs: Laboratory Tests 11/13/19 11/13/19 11/13/19 18:47 18:47 18:47 WBC 12.0 H RBC 3.83 L Hgb 12.4 L Hct 35.2 L MCV 91.9 MCH 32.4 H MCHC 35.2 RDW 12.7 Plt Count 171 MPV 8.2 Neut # (Auto) 10.3 H Lymph # (Auto) 0.7 L Lewis # (Auto) 0.9 Eos # (Auto) 0.0 Baso # (Auto) 0.0 Absolute Nucleated RBC 0.00 Nucleated RBC % 0.0 PT INR APTT Sodium 124 L Potassium 3.7 Chloride 89 L Carbon Dioxide 23 Anion Gap 12.0 BUN 14 Creatinine 0.6 Estimated GFR (MDRD) 130 Glucose 109 H Calcium 8.5 Magnesium 1.8 Total Bilirubin 0.5 AST 33 ALT 20 Alkaline Phosphatase 84 Troponin I High Sens 2.7 Total Protein 6.2 L Albumin 3.4 Globulin 2.8 Albumin/Globulin Ratio 1.2 Lipase 35 TSH 11/13/19 11/13/19 18:47 18:47 WBC RBC Hgb Hct MCV MCH MCHC RDW Plt Count MPV Neut # (Auto) Lymph # (Auto) [place] # (Auto) Eos # (Auto) Baso # (Auto) Absolute Nucleated RBC Nucleated RBC % PT 14.1 H INR 1.3 H APTT 35.3 H Sodium Potassium Chloride Carbon Dioxide Anion Gap BUN Creatinine Estimated GFR (MDRD) Glucose Calcium Magnesium Total Bilirubin AST ALT Alkaline Phosphatase Troponin I High Sens Total Protein Albumin Globulin Albumin/Globulin Ratio Lipase TSH 3.88 - Rads (name of study) head CT Radiology: Prelim report reviewed, Discussed with rads (Left frontal subdural hematoma measuring 1.6 cm in diameter at the widest. There is no midline shift nor significant edema. Possible subarachnoid blood in the sylvian fissure. Congenital skull malformations noted), See rad report cervical CT Radiology: Prelim report reviewed (Chronic abnormalities but no acute fracture.), See rad report chest CT Radiology: Prelim report reviewed (No acute traumatic injuries prior. Prior rib fractures well-healed and noted), See rad report abd/pelvis Radiology: Prelim report reviewed (2 x 8 cm pelvic hematoma in the perirectal area. Prior pelvic and hip fractures noted. There is possible new lucency in the sacral area at the level 4-5 suggesting an acute nondisplaced fracture.), See rad report PD MEDICAL DECISION MAKING - ED course Complexity details: reviewed results (Due to the acute severity of his injuries needing further specialized care, I did contact [facility] and arrange transfer. He was accepted by the ER attending Dr. Luz.), re- evaluated patient (Perhaps slightly more confused but still able to follow commands. Has a normal patent airway and unlabored respirations.), considered differential (He is not able to remember events preceding falling on the porch. Unclear whether he had a syncopal episode and subsequent fall and trauma or a primary mechanical fall and trauma. He had been feeling okay earlier in the day. His daughter says there has been unsteadiness with walking somewhat over the past year and generalized weakness in the past month or 2. He has been having some weight loss. No recent change in medicines. His CT scans do show a subdural hematoma as well as a pelvic hematoma consistent with traumatic injury. Unclear whether the primary cause was mechanical fall versus syncope for other reason. He is hyponatremic but otherwise labs are looking pretty good. His heart monitor showing a normal rhythm. 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
[2019-11-13] MEDS ORDERED: SODIUM CHLORIDE 0.9% 1,000 ML IV ONE ×2 (18:31→21:01)
[2019-11-13 18:53] LABS: BASOPHILS % (AUTO) 0.3 %; EOSINOPHILS % (AUTO) 0.3 %; HGB - HEMOGLOBIN 12.4 g/dL (14.0-18.0); LYMPHOCYTES # (AUTO) 0.7 10^3/uL (1.5-3.5); LYMPHOCYTES % (AUTO) 5.4 %; MEAN CORPUSCULAR HEMOGLOBIN 32.4 pg (27.0-31.0); MEAN CORPUSCULAR HGB CONC 35.2 g/dL (32.0-36.0); MEAN CORPUSCULAR VOLUME 91.9 fL (80.0-94.0); MEAN PLATELET VOLUME 8.2 fL (7.4-11.4); MONOCYTES # (AUTO) 0.9 10^3/uL (0.0-1.0); MONOCYTES % (AUTO) 7.6 %; NEUTROPHILS # (AUTO) 10.3 10^3/uL (1.5-6.6); NEUTROPHILS % (AUTO) 85.9 %; PLT - PLATELET COUNT 171 10^3/uL (130-450); RED BLOOD COUNT 3.83 10^6/uL (4.70-6.10); RED CELL DISTRIBUTION WIDTH 12.7 % (12.0-15.0)
[2019-11-13 19:06] LABS: ALBUMIN 3.4 g/dL (3.2-5.5); ALBUMIN/GLOBULIN RATIO 1.2 (1.0-2.2); BILIRUBIN,TOTAL 0.5 mg/dL (0.2-1.0); CALCIUM 8.5 mg/dL (8.5-10.3); CREATININE 0.6 mg/dL (0.6-1.2); MAGNESIUM 1.8 mg/dL (1.7-2.8); TOTAL PROTEIN 6.2 g/dL (6.7-8.2)
[2019-11-13] MEDS ORDERED: IOVERSOL 320 100 ML VIAL IVP ONE ×2 (19:20→20:27)
--- NOTE | 2019-11-13 20:36 | CT Report ---
Reason: fall with pain upper back and left chest Procedure Date: 11/13/2019 Accession Number: [id number] / [id number] Procedure: CT - CHEST W CPT Code: Final Report FULL RESULT: EXAM: CT CHEST EXAM DATE: 11/13/2019 08:18 PM. CLINICAL HISTORY: Fall with pain upper back and left chest. COMPARISONS: None. TECHNIQUE: Routine helical CT imaging was performed through the chest. IV contrast: None. Reconstructions: Coronal and sagittal. In accordance with CT protocol optimization, one or more of the following dose reduction techniques were utilized for this exam: automated exposure control, adjustment of mA and/or KV based on patient size, or use of iterative reconstructive technique. FINDINGS: Lungs/Pleura: Peripheral fibrotic changes in the bilateral lower lobes, right middle lobe, and lingula, with multiple small subpleural cysts and mild bronchiectasis. No nodules or focal airspace opacities. Mediastinum: Normal. No adenopathy or masses. The heart and great vessels are normal. Bones: Angular deformities of the left anterior sixth, seventh, eighth, and ninth ribs appear chronic. No evidence of acute fracture. Chronic anterior wedging of the T7 and T8 vertebral bodies with adjacent Schmorl's nodes. No acute vertebral body fracture. 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 Visualized Abdomen: Transverse colon extends into a midline ventral hernia. 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 Simple left hepatic cysts. Other: None. IMPRESSION: 1. No evidence of acute fracture. 2. 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 3. Healed fractures of the left anterior/anterolateral sixth, seventh, eighth, ninth ribs. 4. Fibrotic changes with subpleural cysts in the bilateral lungs in a pattern suggestive of pulmonary fibrosis, UIP pattern. RADIA
--- NOTE | 2019-11-13 20:39 | CT Report ---
Reason: fall with some neck pain Procedure Date: 11/13/2019 Accession Number: [id number] / [id number] Procedure: CT - CERVICAL SPINE WO CPT Code: Final Report FULL RESULT: EXAM: CT CERVICAL SPINE WITHOUT CONTRAST DATE: 11/13/2019 08:18 PM. HISTORY: Fall with some neck pain. COMPARISONS: None.. TECHNIQUE: Thin-section axial images were acquired of the cervical spine without contrast. Post-processing: Coronal and sagittal reformats. Other: None. In accordance with CT protocol optimization, one or more of the following dose reduction techniques were utilized for this exam: automated exposure control, adjustment of mA and/or KV based on patient size, or use of iterative reconstructive technique. FINDINGS: Alignment: No scoliosis or spondylolisthesis. Bones: No acute fractures. Interspace Levels/Facets: C1-C2: Unremarkable. C2-C3: Moderate bilateral facet disease. No central canal or neural foraminal stenosis. C3-C4: Mild to moderate disk height loss. Uncovertebral hypertrophic changes on the right with moderate to severe facet disease. Moderate to severe neural foraminal stenosis on the right. C4-C5: Mild to moderate disk height loss. Uncovertebral hypertrophic changes on the right and moderate to severe facet disease with neural foraminal stenosis. Mild to moderate on the left. C5-C6: Ankylosis of the vertebral bodies at this level. No central canal or neural foraminal stenosis. C6-C7: Mild to moderate disk height loss with posterior disk osteophyte complex. Mild to moderate bilateral neural foraminal stenosis. C7-T1: Unremarkable. Musculature: Normal. No fatty atrophy. Other: The paravertebral and prevertebral soft tissues are unremarkable. The lung apices are clear. Tracheal diverticulum is incompletely seen, see separate report CT chest. IMPRESSION: Degenerative disk disease but no fracture or subluxation. [facility]
--- NOTE | 2019-11-13 20:51 | CT Report ---
Reason: fall with pain lower back and pelvis Procedure Date: 11/13/2019 Accession Number: [id number] / [id number] Procedure: CT - Abdomen/Pelvis W CPT Code: Final Report FULL RESULT: EXAM: CT ABDOMEN AND PELVIS EXAM DATE: 11/13/2019 08:18 PM. CLINICAL HISTORY: Fall with pain lower back and pelvis. COMPARISONS: CH/ABD/PEL 02/23/2009 11:09 AM. HIP W/PELVIS 2-3V LT 11/10/2018 11:25 PM. TECHNIQUE: Routine helical CT imaging was performed through the abdomen and pelvis. IV contrast: Optiray 320. Enteric contrast: No. Reconstructions: Coronal and sagittal. In accordance with CT protocol optimization, one or more of the following dose reduction techniques were utilized for this exam: automated exposure control, adjustment of mA and/or KV based on patient size, or use of iterative reconstructive technique. FINDINGS: Lung bases: Small amount of fluid in the distal esophagus. Emphysema of the lung bases. Mild bibasilar scarring. Liver: A few small liver cysts seen in the lateral segment left hepatic lobe. Status post cholecystectomy. No bowel dilatation. Pancreas: Unremarkable. Spleen: Unremarkable. Adrenals: Right adrenal gland is unremarkable. Macroscopic fat-containing left adrenal mass consistent with a myelolipoma, measures 6.4 x 3.3 cm, and this was present on the prior. This mass has some coarse calcifications. Kidneys: No hydronephrosis. Bowel: Mid gastric surgery. There is a mid abdomen ventral hernia containing part of the transverse colon and this was present on the prior, measures 4.5 cm without evidence for obstruction or strangulation. No dilated bowel loops are seen. New moderate hemorrhage is seen posterior to the rectum, measures 2.8 x 8.8 cm, and there also appears to be some blood that extends up posteriorly and this could all be extraperitoneal. Small hemoperitoneum not excluded. Cortical lucency seen in chronic bony deformity of the left superior pubic ramus, could represent an acute on chronic or subacute left superior pubic ramus fracture. Old healed left inferior pubic ramus fracture. Left sacral alar fractures appear healed. Bones are demineralized. On the lateral view, there appears to be a cortical lucency at segment 4-5 with an indentation with the distal sacrum angled anteriorly, could represent an acute or chronic sacrum fracture. Internal fixation hardware left proximal femur. Grade 1-2 anterolisthesis L5-S1. Moderate diffuse anasarca. The bladder and remaining pelvic organs appear unremarkable. Vasculature: No acute vascular findings. IMPRESSION: 1. Emphysema. 2. Left myelolipoma again noted. 3. Mid abdomen ventral hernia containing part of the transverse colon again noted without evidence for obstruction or strangulation. 4. New moderate hemorrhage is seen posterior to the rectum, measures 2.8 x 8.8 cm, and there also appears to be some blood that extends up posteriorly and this could all be extraperitoneal. This could be related to the pelvic bone fractures. Small hemoperitoneum not excluded. Otherwise, no evidence for solid organ laceration. Cortical lucency seen in chronic bony deformity of the left superior pubic ramus, could represent an acute on chronic or subacute left superior pubic ramus fracture. Old healed left inferior pubic ramus fracture. Left sacral alar fractures appear healed. Bones are demineralized. On the lateral view, there appears to be a cortical lucency at segment 4-5 with an indentation with the distal sacrum angled anteriorly, could represent an acute or chronic sacrum fracture. 5. Moderate diffuse anasarca. 6. Otherwise, see above. RADIA
--- NOTE | 2019-11-13 20:54 | CT Report ---
Reason: fall with confusion; history of cranial deformity Procedure Date: 11/13/2019 Accession Number: [id number] / [id number] Procedure: CT - HEAD WO CPT Code: Final Report FULL RESULT: EXAM: CT HEAD EXAM DATE: 11/13/2019 08:14 PM. CLINICAL HISTORY: Fall with confusion; history of cranial deformity. COMPARISON: None. TECHNIQUE: Multiaxial CT images were obtained from the foramen magnum to the vertex. Reformats: Sagittal and coronal. IV contrast: None. In accordance with CT protocol optimization, one or more of the following dose reduction techniques were utilized for this exam: automated exposure control, adjustment of mA and/or KV based on patient size, or use of iterative reconstructive technique. FINDINGS: Parenchyma: Limited examination due to streak artifact related to patient positioning. There may be subarachnoid hemorrhage at the left frontal lobe and left sylvian fissure.Extensive right temporal encephalomalacia with compensatory dilatation of the lateral ventricle. Within the limits of the examination, there is no CT evidence of acute transcortical infarction. No masses identified. The subdural hematoma in the left temporal region has mass-effect upon the left temporal lobe. Extraaxial Spaces: Large left-sided subdural hematoma extending along the entirety of the left convexity and along the falx and tentorium. Hematoma measures up to 1.6 cm in the left temporal fossa No definite epidural hematoma. Ventricles: Dilatation of the temporal horn of the right lateral ventricle. Sinuses and Orbits: Imaged paranasal sinuses, orbits, and mastoids show no significant abnormality. Bones: Morphology of the cranium suggests craniosynostosis. No fractures. Other: None. IMPRESSION: Left sided subdural hematoma extending along the left convexity with extension along the falx and left tentorium. Possible subarachnoid hemorrhage within the left sylvian fissure and left frontal lobe. Examination is limited by streak artifact due to patient positioning. [facility] The above call report findings were discussed with Gómez Reveles by Dr. Camron De Jesus at 08:55 PM on 11/13/2019.
[2019-11-13] MEDS ORDERED: ACETAMINOPHEN 1,000 MG/100 ML 100 ML IV STA (20:59)
[2019-11-13 21:31] VITALS: BP 162/94
[2019-11-13 21:47] LABS: INR 1.3 (0.8-1.2); PT - PROTHROMBIN TIME 14.1 secs (9.9-12.6)
[2019-11-13 21:54] LABS: PARTIAL THROMBOPLASTIN TIME 35.3 secs (24.9-33.3)
== END 2019-11-13 22:21 | disposition short-term general hospital (02) ==
LOC: ED 17:00
DX: R41.82 Altered mental status, unspecified (principal); S06.5X9A Traumatic subdural hemorrhage with loss of consciousness of unspecified duration, initial encounter; S30.0XXA Contusion of lower back and pelvis, initial encounter; W19.XXXA Unspecified fall, initial encounter; Y92.008 Other place in unspecified non-institutional (private) residence as the place of occurrence of the external cause; E87.1 Hypo-osmolality and hyponatremia; R60.1 Generalized edema; F17.200 Nicotine dependence, unspecified, uncomplicated
CPT/HCPCS: 36415; 70450; 71260; 72125; 74177; 80053; 83690; 83735; 84443; 84484; 85025; 85610; 85730; 93005; 96361; 96374; 99285; J0131; Q9967